=== PATIENT | female | born 1930 | race Caucasian/White ===

== ENCOUNTER 2016-09-04 10:19 | Inpatient (IN) | payer MEDICARE ==
[~2016-09-04] VITALS: Ht 160 cm; Wt 43.5 kg
[2016-09-04] VITALS (8 sets, daily range): BP systolic 117–186; BP diastolic 59–92
[~2016-09-04 10:19] MED LIST: ACET500T33 PO; ASPI-482 PO; ASPI81TA9 PO; BENA1TAB6 PO; BIOT1TAB PO; BUPR150T6 PO; DILT120C97 PO; DILT120T3 PO; DILT240C32 PO; GUAI600T38 PO; HYDR12.53 PO; LEVO250T25 PO; LISI-334 PO; LISI10TA2 PO; METO25TA4 PO; METO50TA2 PO; OXYC1TAB9 PO; PANT40TA5 PO; PRED-220 PO; PROP50TA17 PO; TRAM50TA PO; TRAMADOL PO; ZOLP10TA4 PO
[2016-09-04] MEDS ORDERED: IV NORMAL SALINE 1000ML BAG 1,000 ML IV SCH (10:25)
[2016-09-04] MEDS ORDERED: ONDANSETRON PF 4 MG/2 ML VIAL. IV ONE (10:30)
[2016-09-04] MEDS ORDERED: fentaNYL PF VIAL 100 MCG/2 ML VIAL IV PRN ×2 (10:30→19:30)
--- NOTE | 2016-09-04 10:58 | RAD ---
Portable pelvis with left hip, 2 views, 09/04/2016: History: Fall, pain The bony structures are demineralized. There is an acute intertrochanteric fracture of the left hip. There is a mild varus deformity at the fracture site. There is mild medial displacement of a lesser trochanteric fracture fragment. Moderate degenerative change is present at the left hip joint. There are extensive scattered vascular calcifications. There are periarticular calcifications along the lateral aspect of the right hip joint. There are small radiopaque foreign bodies projected over the right mid pelvis and the left lower quadrant of the abdomen. These may represent artifacts on the surface of the patient. Clinical correlation is suggested. IMPRESSION: 1. Demineralization. 2. Acute intertrochanteric fracture of the left hip.
--- NOTE | 2016-09-04 11:00 | RAD ---
Portable chest, 09/04/2016: History: Fall, back and hip pain Comparison is made to a study from 06/03/2015. The heart size and pulmonary vascularity are within normal limits. There is calcific plaquing of the aorta. There are mild parenchymal scars. No acute infiltrate is seen. There is no evidence of pleural fluid or pneumothorax. There is a mild thoracolumbar scoliosis with associated multilevel degenerative change. IMPRESSION: 1. Aortic atherosclerosis. 2. No acute cardiopulmonary abnormality is detected.
--- NOTE | 2016-09-04 11:01 | RAD ---
Portable left knee, 2 views, 09/04/2016: History: Fall, pain There is patchy bony demineralization. No fracture or dislocation is identified. There is moderate chondrocalcinosis. Moderate scattered vascular calcifications are present. IMPRESSION: 1. Demineralization. 2. Moderate chondrocalcinosis. 3. No acute bony abnormality is detected.
--- NOTE | 2016-09-04 11:21 | PHYS DOC ---
Past Medical History Past Medical History: A-Fib, Hypertension, Other Additional Past Medical Histor: scoliosos Past Surgical History: Hysterectomy, Other Additional Past Surgical Histo: foot Alcohol Use: None Drug Use: None Adult General Chief Complaint Chief Complaint: HIP PAIN HPI HPI Patient is a 85 year old female who presents with complaint of left hip pain. Patient states that she was walking on her driveway to get her morning newspaper when she suddenly lost balance and fell onto her left side. Patient states that she experienced severe pain and was unable to ambulate after her fall. EMS was called and brought patient to the emergency department for further evaluation. The patient was treated with 50 g of fentanyl by EMS prior to arrival. Patient states she is having severe pain in the left hip and is unable to move the left lower extremity secondary to pain. Patient states that the pain radiates down towards her left knee. Patient denies any other injuries but states that she may have hit her head as result of the fall. Review of Systems Review of Systems Constitutional: Denies fever or chills [] Eyes: Denies change in visual acuity, redness, or eye pain [] HENT: Denies nasal congestion or sore throat [] Respiratory: Denies cough or shortness of breath [] Cardiovascular: Denies chest pain or edema [] GI: Denies abdominal pain, nausea, vomiting, bloody stools or diarrhea [] : Denies dysuria or hematuria [] Musculoskeletal: Left hip and knee pain [] Integument: Denies rash or skin lesions [] Neurologic: Denies headache, focal weakness or sensory changes [] Current Medications Current Medications Current Medications Medications (Trade) Dose Ordered Sig/Andre Start Time Stop Time Status Last Admin Dose Admin Fentanyl Citrate (Fentanyl 2ml Vial) 50 mcg PRN Q15MIN PRN 09/04/16 10:30 09/05/16 10:29 09/04/16 10:43 50 MCG Ondansetron HCl (Zofran) 4 mg 1X ONCE 09/04/16 10:30 09/04/16 10:32 DC 09/04/16 10:43 4 MG Sodium Chloride 1,000 ml @ 100 mls/hr Q10H 09/04/16 10:25 09/04/16 20:24 09/04/16 10:44 100 MLS/HR Allergies Allergies Allergies Coded Allergies Type Severity Reaction Last Updated Verified No Known Drug Allergies 10/29/14 No Physical Exam Physical Exam Constitutional: Alert, afebrile, appears in moderate to severe discomfort. [] HENT: Normocephalic, atraumatic, bilateral external ears normal, oropharynx moist, no oral exudates, nose normal. [] Eyes: PERRLA, EOMI, conjunctiva normal, no discharge. [] Neck: Normal range of motion, no tenderness, supple, no stridor. [] Cardiovascular:Heart rate regular rhythm, no murmur [] Lungs & Thorax: Bilateral breath sounds clear to auscultation [] Abdomen: Bowel sounds normal, soft, no tenderness, no masses, no pulsatile masses. [] Skin: Warm, dry, no erythema, no rash. [] Back: No tenderness, no CVA tenderness. [] Extremities: Left lower extremity shortened and held in mildly flexed position, no cyanosis, no clubbing, range of motion not tested and left hip secondary to pain, trace pedal edema bilaterally, neurovascularly intact distal to injury, pain with range of motion and right shoulder with no palpable crepitus and no obvious deformity. [] Neurologic: Alert and oriented X 3, normal motor function, normal sensory function, no focal deficits noted. [] Current Patient Data Vital Signs Vital Signs Date Time Temp Pulse Resp B/P (MAP) Pulse Ox O2 Delivery O2 Flow Rate FiO2 09/04/16 10:43 20 09/04/16 10:26 98.2 51 210/89 (129) 99 Room Air 98.2 EKG EKG Interpreted by me: Heart rate 53, sinus bradycardia, normal intervals, normal axis, no acute ST/T-wave abnormalities present [] Radiology/Procedures Radiology/Procedures [facility] [address] [place] [address] IMAGING REPORT Signed PATIENT: CHANTE ZAIDI ACCOUNT: [id number] : 1930 LOCATION: [address] [place] [address] AGE: 85 SEX: F EXAM STATUS: ADM IN ORD. PHYSICIAN: OMAR JOHN MD REASON: fall, right shoulder pain PROCEDURE: SHOULDER 2+V RIGHT Right shoulder, 3 views, 09/04/2016: History: Fall, shoulder pain The bony structures are demineralized. No fracture or dislocation is identified. There is considerable hypertrophic degenerative change at the acromioclavicular joint. There is mild spurring at the glenohumeral articulation. There are soft tissue calcifications along the superior aspect of the humeral head and the lateral aspect of the greater tuberosity, probably related to rotator cuff tendons. IMPRESSION: 1. Demineralization. 2. Moderate degenerative change. 3. No acute bony abnormality is detected. DICTATED and SIGNED BY: PAVAN CAMARENA MD DATE: 09/04/16 0948 CC: OMAR JOHN MD; VIVIANA OCHOA MD ~ [place] [id number] [place] [address] IMAGING REPORT Signed PATIENT: CHANTE ZAIDI ACCOUNT: [id number] : 1930 LOCATION: [address] [place] [address] AGE: 85 SEX: F EXAM STATUS: ADM IN ORD. PHYSICIAN: OMAR JOHN MD REASON: fall with possible head injury PROCEDURE: CT HEAD WO CONTRAST CT of the head without contrast, 09/04/2016: History: Fall, head injury Comparison is made to a study from 05/21/2015. There is mild cerebral atrophy. There are moderate patchy lucencies in the deep white matter bilaterally compatible with chronic ischemic change. Similar findings were present on the previous study. The ventricles are mildly enlarged on a compensatory basis. There is no shift of the midline structures. There is no evidence of acute intracranial hemorrhage or mass effect. IMPRESSION: 1. Chronic findings as described above. 2. No acute intracranial abnormality is detected. PQRS Compliance Statement: One or more of the following individualized dose reduction techniques were utilized for this examination: 1. Automated exposure control 2. Adjustment of the mA and/or kV according to patient size 3. Use of iterative reconstruction technique DICTATED and SIGNED BY: PAVAN CAMARENA MD DATE: 09/04/16 1150 CC: OMAR JOHN MD; VIVIANA OCHOA MD ~ [facility] [address] [place] [address] IMAGING REPORT Signed PATIENT: CHANTE ZAIDI ACCOUNT: [id number] : 1930 LOCATION: ER AGE: 85 SEX: F EXAM STATUS: PRE ER ORD. PHYSICIAN: OMAR JOHN MD REASON: fall, left hip pain, shortened left lower extremity, left hip pain PROCEDURE: HIP LEFT 2V WITH PELVIS Portable pelvis with left hip, 2 views, 09/04/2016: History: Fall, pain The bony structures are demineralized. There is an acute intertrochanteric fracture of the left hip. There is a mild varus deformity at the fracture site. There is mild medial displacement of a lesser trochanteric fracture fragment. Moderate degenerative change is present at the left hip joint. There are extensive scattered vascular calcifications. There are periarticular calcifications along the lateral aspect of the right hip joint. There are small radiopaque foreign bodies projected over the right mid pelvis and the left lower quadrant of the abdomen. These may represent artifacts on the surface of the patient. Clinical correlation is suggested. IMPRESSION: 1. Demineralization. 2. Acute intertrochanteric fracture of the left hip. DICTATED and SIGNED BY: PAVAN CAMARENA MD DATE: 09/04/16 1053 CC: OMAR JOHN MD; VIVIANA OCHOA MD ~ [place] [address] IMAGING REPORT Signed PATIENT: CHANTE ZAIDI ACCOUNT: [id number] : 1930 LOCATION: ER AGE: 85 SEX: F EXAM STATUS: PRE ER ORD. PHYSICIAN: OMAR JOHN MD REASON: fall from standing onto hard surface, upper back pain PROCEDURE: PORTABLE CHEST 1V Portable chest, 09/04/2016: History: Fall, back and hip pain Comparison is made to a study from 06/03/2015. The heart size and pulmonary vascularity are within normal limits. There is calcific plaquing of the aorta. There are mild parenchymal scars. No acute infiltrate is seen. There is no evidence of pleural fluid or pneumothorax. There is a mild thoracolumbar scoliosis with associated multilevel degenerative change. IMPRESSION: 1. Aortic atherosclerosis. 2. No acute cardiopulmonary abnormality is detected. DICTATED and SIGNED BY: PAVAN CAMARENA MD DATE: 09/04/16 105 CC: OMAR JOHN MD; VIVIANA OCHOA MD ~ [facility] [address] [place] [address] IMAGING REPORT Signed PATIENT: CHANTE ZAIDI ACCOUNT: [id number] : 1930 LOCATION: ER AGE: 85 SEX: F EXAM STATUS: PRE ER ORD. PHYSICIAN: OMAR JOHN MD REASON: fall, left hip pain, shortened left lower extremity, left knee pain PROCEDURE: KNEE LEFT 2V Portable left knee, 2 views, 09/04/2016: History: Fall, pain There is patchy bony demineralization. No fracture or dislocation is identified. There is moderate chondrocalcinosis. Moderate scattered vascular calcifications are present. IMPRESSION: 1. Demineralization. 2. Moderate chondrocalcinosis. 3. No acute bony abnormality is detected. DICTATED and SIGNED BY: PAVAN CAMARENA MD DATE: 09/04/161057 CC: OMAR JOHN MD; VIVIANA OCHOA MD ~ [] Course & Med Decision Making Course & Med Decision Making Pertinent Labs and Imaging studies reviewed. (See chart for details) Patient was found to have a left intertrochanteric fracture on x-ray. The patient was started on IV fentanyl and IV fluids. The patient will need admission to the hospital with orthopedic consult to evaluate for possible surgical fixation of patient's fracture. I spoke with Dr. Ochoa who accepted care patient in hospital. A consult was placed to Dr. Mayen of orthopedic surgery to follow patient in hospital. Dragon Disclaimer Dragon Disclaimer This electronic medical record was generated, in whole or in part, using a voice recognition dictation system. Departure Departure Impression: Primary Impression: Intertrochanteric fracture of left hip Additional Impression: Renal insufficiency Disposition: 09 ADMITTED INPATIENT Admitting Physician: Viviana Ochoa Condition: STABLE Referrals: VIVIANA OCHOA MD (PCP) Problem Qualifiers Primary Impression: Intertrochanteric fracture of left hip Encounter type: initial encounter Fracture type: closed Qualified Codes: S72.142A - Displaced intertrochanteric fracture of left femur, initial encounter for closed fracture OMAR JOHN MD September 04, 2016 11:21
[2016-09-04 11:29] LABS: BASO # 0.1 x10^3/uL (0.0-0.2); BASO % 1 % (0-3); EOS % 2 % (0-3); HEMATOCRIT 31.6 % (36.0-47.0); HEMOGLOBIN 10.5 g/dL (12.0-15.5); LYMPH # 1.4 x10^3/uL (1.0-4.8); LYMPH % 17 % (24-48); MEAN CORPUSCULAR HEMOGLOBIN 30 pg (25-35); MEAN CORPUSCULAR HGB CONC 33 g/dL (31-37); MEAN CORPUSCULAR VOLUME 91 fL (79-100); MONO % 9 % (0-9); NEUT % 73 % (31-73); PLATELET COUNT 248 x10^3/uL (140-400); RED BLOOD COUNT 3.48 x10^6/uL (3.50-5.40); RED CELL DISTRIBUTION WIDTH 14.1 % (11.5-14.5); WHITE BLOOD COUNT 8.7 x10^3/uL (4.0-11.0)
[2016-09-04] MEDS ORDERED: ACETAMINOPHEN 325 MG TABLET. PO PRN (11:30)
[2016-09-04] MEDS ORDERED: ONDANSETRON PF 4 MG/2 ML VIAL. IV PRN ×3 (11:30→19:30)
[2016-09-04 11:40] LABS: CALCIUM 9.5 mg/dL (8.5-10.1); CREATININE 1.5 mg/dL (0.6-1.0); GFR 32.9; POTASSIUM 4.1 mmol/L (3.5-5.1)
[2016-09-04 11:46] LABS: ALBUMIN 3.3 g/dL (3.4-5.0); ALBUMIN/GLOBULIN RATIO 1.2 (1.0-1.7); TOTAL BILIRUBIN 0.5 mg/dL (0.2-1.0)
--- NOTE | 2016-09-04 11:52 | RAD ---
Right shoulder, 3 views, 09/04/2016: History: Fall, shoulder pain The bony structures are demineralized. No fracture or dislocation is identified. There is considerable hypertrophic degenerative change at the acromioclavicular joint. There is mild spurring at the glenohumeral articulation. There are soft tissue calcifications along the superior aspect of the humeral head and the lateral aspect of the greater tuberosity, probably related to rotator cuff tendons. IMPRESSION: 1. Demineralization. 2. Moderate degenerative change. 3. No acute bony abnormality is detected.
--- NOTE | 2016-09-04 11:55 | RAD ---
CT of the head without contrast, 09/04/2016: History: Fall, head injury Comparison is made to a study from 05/21/2015. There is mild cerebral atrophy. There are moderate patchy lucencies in the deep white matter bilaterally compatible with chronic ischemic change. Similar findings were present on the previous study. The ventricles are mildly enlarged on a compensatory basis. There is no shift of the midline structures. There is no evidence of acute intracranial hemorrhage or mass effect. IMPRESSION: 1. Chronic findings as described above. 2. No acute intracranial abnormality is detected. PQRS Compliance Statement: One or more of the following individualized dose reduction techniques were utilized for this examination: 1. Automated exposure control 2. Adjustment of the mA and/or kV according to patient size 3. Use of iterative reconstruction technique
[2016-09-04 12:29] LABS: BILIRUBIN,URINE NEGATIVE (NEG); GLUCOSE,URINE NEGATIVE (NEG); NITRITE,URINE NEGATIVE (NEG); PROTEIN,URINE NEGATIVE (NEG-TRACE); UROBILINOGEN,URINE 0.2 mg/dL (0.2 mg/dL)
[2016-09-04 12:44] LABS: BACTERIA,URINE 0 /HPF (0-FEW); RBC,URINE 0 /HPF (0-2); SQUAMOUS EPITHELIAL CELL,UR FEW /LPF; WBC,URINE OCC /HPF (0-4)
--- NOTE | 2016-09-04 13:15 | ACF ---
Admission Forms Criteria MUSCULOSKELETAL DISEASE GRG Clinical Indications for Admission to Inpatient Care (Place 'X' for any and all applicable criteria): Hospital admission is needed for appropriate care of the patient because of 1 or more of the following: [X]I. Fracture, dislocation, or other musculoskeletal injury requiring inpatient care(medical) as indicated by 1 or more of the following(4)(5)(6)(7) [ ]a) Vertebral fracture requiring observation for instability or neurologic compromise (8) [ ]b) Compartment syndrome (proven or cannot be ruled out during observation level of care) (9) [ ]c) Limb-threatening injury [ ]d) Major injury requiring inpatient stabilization such as traction initiation or external fixation before internal fixation or closure of complex or open fracture [X]e) Major injury requiring inpatient treatment after emergency or observation level care (as appropriate) [ ]f) Severe pain requiring acute inpatient management [ ]g) Injury with suspicion of abuse or neglect (eg., child, dependent elderly) [ ]II. Newly diagnosed or suspected bone, joint, or orthopedic device infection (e.g., osteomyelitis, septic arthritis) needing 1 or more of the following(1)(2)(3) [ ]a) IV antibiotics that cannot be initiated in other than inpatient setting (e.g., patient too unstable or home infusion not available) [ ]b) Device removal or replacement [ ]c) Bone or soft tissue debridement [ ]d) Joint drainage (drain placement or repetitive aspirations) [ ]III. Severe rheumatologic disease (e.g., systemic lupus erythematosus, rheumatoid arthritis) with complications or comorbidities (Also use Optimal Recovery Care Criteria or General Recovery Criteria as appropriate on the basis of predominant condition), including 1 or more of the following( 10)(11)(12)(13) [ ]a) Severe infection (e.g., [employer] infection, sepsis) (14) [ ]b) Respiratory complications, including 1 or more of the following : [ ]i) Pleural effusion with respiratory compromise [ ]ii) Pulmonary hypertension with congestive failure [ ]iii) Respiratory failure [ ]iv) Pulmonary hemorrhage (15) [ ]c) Hematologic disease, including 1 or more of the following: [ ]i) Coagulopathy with bleeding [ ]ii) Thrombosis with hypercoagulable state [ ]iii) Thrombotic thrombocytopenic purpura [ ]d) Cerebritis with seizures, psychosis, or other severe abnormalities [ ]e) Vertebral destruction with monitoring needed for cervical myelopathy& possible respiratory compromise [ ]f) Exacerbation that requires inpatient treatment (e.g., intravenous immunosuppression) (16) [ ]g) Acute renal failure [ ]h) Cerebritis with seizures, psychosis, Altered mental status, or other neurologic abnormalities [ ]i) Pericardial effusion with tamponade [ ]j) Vertebral destruction, with monitoring needed for cervical myelopathy and possible respiratory compromise [ ]IV. Severe vasculitis with complications or comorbidities (Also use Optimal Recovery Care Criteria General Recovery Criteria as appropriate on the basis of predominant condition), including 1 or more of the following(11)(12)(17)(18)(19)(20) [ ]a) Exacerbation that requires inpatient treatment (e.g., intravenous immunosuppression) (19)(21) [ ]b) Pulmonary hemorrhage (15) [ ]c) [employer] vasculitis with seizures, psychosis, Altered mental status that is severe or persistent, or other severe abnormalities (22) [ ]d) Cerebral infarction [ ]e) Gastrointestinal ischemia [ ]f) Gangrene or threatened amputation [ ]g) Renal failure (16) [ ]h) Other significant complications of vasculitis ( eg., tissue or organ ischemia, organ dysfunction ) [ ]V. Severe myopathy as indicated by 1 or more of the following (28)(29) [ ]a) New onset of airway compromise or inability to swallow [ ]b) Respiratory deterioration with observation needed for impending respiratory failure [ ]c) Exacerbation that requires inpatient treatment (e.g., intravenous immunosuppression) [ ]. Severe crystal gout (arthropathy) indicated by 1 or more of the following (23)(24) [ ]a) Severe pain requiring acute inpatient management [ ]b) Exacerbation that requires inpatient treatment (e.g., intravenous treatment) [ ]VII.Rhabdomyolysis and 1 or more of the following (25)(26)(27) [ ]a) Acute renal failure [ ]b) Need for intravenous hydration after emergency or observation level care (as appropriate) [ ]c) Inability to maintain oral hydration [ ]d) Change in mental status [ ]e) Electrolyte abnormality that remains after emergency or observation level care (as appropriate) [ ]VIII Post amputation complication, as indicated by ANY ONE of the following [ ]a) Infection [ ]b) Dehiscence [ ]c) Myodesis failure [ ]IX. Severe pain requiring acute inpatient management due to musculoskeletal condition [ ]X. Musculoskeletal Disease and ALL of the following: [ ]a) Symptom or finding for which emergency and observation care have failed or are not considered appropriate (Use General Criteria: Observation Care as appropriate) [ ]b) Presence of ANY ONE of the following [ ]i) A General Admission Criteria [ ]ii) A Pediatric General Admission Criteria The original [facility] [employer] content created by [facility] [employer] has been revised. The portions of the content which have been revised are identified through the use of italic text or in bold, and [facility] has neither reviewed nor approved the modified material. All other unmodified content is copyright [facility]. Please see references footnoted in the original [facility] edition 2016 Admission Criteria Met?: Yes KETTY CHEEK September 04, 2016 13:15
[2016-09-04] MEDS: IV NORMAL SALINE 1000ML BAG 1,000 ML IV SCH ×2 (13:38→19:40)
[2016-09-04] MEDS ORDERED: BUPIVACAINE-EPI 0.25%-1:200000 50 ML VIAL. ONE (14:14)
--- NOTE | 2016-09-04 15:15 | PDOC2 ---
CONSULT Date of Consult Date of Consult DATE: 09/04/16 Reason for Consult Reason for Consult: left hip fracture Referring Physician Referring Physician: Dr. Fitzgerald Identification/Chief Complaint Chief Complaint left hip pain Source Source: Chart review, Patient History of Present Illness Reason for Visit: Ms. Cowart is an 85 year old female patient admitted with left hip fracture. She states she was walking down her driveway at about noon today to get the paper and suddenly lost balance, falling onto her left hip. She says she lives at home alone, renting a house. She normally ambulates well with a cane or a walker. She does still drive. She says she drank a little water this morning, but hasn't eaten anything today. Past Medical History Cardiovascular: AFIB, HTN, Syncope, Valve insufficiency, Pulmonary hypertension , Other Pulmonary: COPD CENTRAL NERVOUS SYSTEM: Dementia, Other GI: Diverticulosis, GERD, GI bleed Heme/Onc: Anemia NOS Psych: Depression Musculoskeletal: Osteoarthritis, Other Rheumatologic: Rheumatoid arthritis Renal/: Chronic renal insuff Past Surgical History Past Surgical History: Appendectomy, Cataract Removal, Hysterectomy, Other Family History Family History: Heart Disease Social History Social History Uses a walker/cane. Still drives. No ALCOHOL: none Drugs: None Lives: Alone (rents a house) Domestic Violence: Neg Current Problem List Problem List Problems Medical Problems: (1) Intertrochanteric fracture of left hip Status: Acute (2) Renal insufficiency Status: Acute Current Medications Current Medications Current Medications Sodium Chloride 1,000 ml @ 100 mls/hr Q10H IV Last administered on 09/04/16 10:44; Start 09/04/16 at 10:25; Stop 09/04/16 at 20:24 Fentanyl Citrate (Fentanyl 2ml Vial) 50 mcg PRN Q15MIN PRN IV PAIN GREATER THAN 3/10 Last administered on 09/04/16 10:43; Start 09/04/16 at 10:30; Stop at 10:29 Ondansetron HCl (Zofran) 4 mg 1X ONCE IV Last administered on 09/04/16 10:43 ; Start 09/04/16 at 10:30; Stop 09/04/16 at 10:32; Status DC Ondansetron HCl (Zofran) 4 mg PRN Q8HRS PRN IV NAUSEA/VOMITING; Start 09/04/16 at 11:30; Stop 09/05/16 at 11:29 Fentanyl Citrate (Fentanyl 2ml Vial) 50 mcg PRN Q2HR PRN IV PAIN; Start at 11:30; Stop 09/05/16 at 11:29 Sodium Chloride 1,000 ml @ 100 mls/hr Q10H IV Last administered on 09/04/16t 13:38; Start 09/04/16 at 12:00; Stop 09/05/16 at 11:59 Acetaminophen (Tylenol) 650 mg PRN Q4HRS PRN PO FEVER; Start 09/04/16 at 11:30 ; Stop 09/05/16 at 11:29 Bupivacaine HCl/ Epinephrine Bitart (Marcaine-Epi 0.25%-1:[id number]) 50 ml STK-MED ONCE .ROUTE ; Start 09/04/16 at 14:14; Stop 09/04/16 at 14:15; Status DC Active Scripts Active Prednisone 10 Mg Tablet 10 Mg PO DIRECTED Levaquin (Levofloxacin) 250 Mg Tablet 250 Mg PO DAILY06 Lisinopril 10 Mg Tablet 10 Mg PO DAILY Mucinex (Guaifenesin) 600 Mg Tablet.er 1,200 Mg PO BID Diltiazem 24HR Cd (Diltiazem Hcl) 240 Mg Cap.er.24h 240 Mg PO DAILY Aspirin Ec (Aspirin) 81 Mg Tablet. 81 Mg PO DAILYWBKFT Metoprolol Tartrate 50 Mg Tablet 1 Tab PO BID Reported Lisinopril 20 Mg Tablet 1 Tab PO DAILY Tylenol Extra Strength (Acetaminophen) 500 Mg Tablet 500 Mg PO DAILY Hydrochlorothiazide Capsule (Hydrochlorothiazide) 12.5 Mg Capsule 1 Cap PO DAILY FOR TREATMENT OF HYPERTENSION LAST DOSE GIVEN: DATE:06/03/15 TIME: 0900 AM NEXT DOSE DUE: DATE: 06/04/15 TIME: 0900 AM Pantoprazole Sodium 40 Mg Tablet. 40 Mg PO DAILYAC PRN Bupropion Xl (Bupropion Hcl) 150 Mg Tab.er.24h 1 Tab PO DAILYWBKFT fOR TREATMENT OF DEPRESSION LAST DOSE GIVEN: DATE: 06/03/15 TIME: 0900 AM NEXT DOSE DUE: DATE: 06/04/15 TIME: 0900 AM Allergies Allergies: Coded Allergies: No Known Drug Allergies (Unverified , 10/29/14) Physical Exam General: Alert, Oriented X3, Cooperative, No acute distress HEENT: Atraumatic, EOMI, Other (Deaf in her left ear. Hears well from her right ear.) Lungs: Normal air movement Heart: Regular rate Abdomen: Soft Extremities: No clubbing, No cyanosis, Normal pulses, Other (BLE trace pedal edema) Skin: No rashes, No breakdown, No significant lesion, Other (Abrasion and ecchymosis to left elbow) Neuro: Normal speech, Sensation intact Psych/Mental Status: Mental status NL, Mood NL MUSCULOSKELETAL: Other (No abrasion or ecchymosis noted over left hip. Left lower extremity shortened and rotated. Attempted motion of left hip is painful. Calf soft and nontender with negative Ciro's. Good df/pf. Peripheral pulses intact. SILT.) Vitals VITALS Vital Signs Date Time Temp Pulse Resp B/P (MAP) Pulse Ox O2 Delivery O2 Flow Rate FiO2 09/04/16 11:30 52 168/104 (125) 96 09/04/16 10:43 20 09/04/16 10:26 98.2 Room Air 98.2 Labs Labs Laboratory Tests Test 09/04/16 11:20 09/04/16 12:20 White Blood Count 8.7 x10^3/uL (4.0-11.0) Red Blood Count 3.48 x10^6/uL (3.50-5.40) Hemoglobin 10.5 g/dL (12.0-15.5) Hematocrit 31.6 % (36.0-47.0) Mean Corpuscular Volume 91 fL (79-100) Mean Corpuscular Hemoglobin 30 pg (25-35) Mean Corpuscular Hemoglobin Concent 33 g/dL (31-37) Red Cell Distribution Width 14.1 % (11.5-14.5) Platelet Count 248 x10^3/uL (140-400) Neutrophils (%) (Auto) 73 % (31-73) Lymphocytes (%) (Auto) 17 % (24-48) Monocytes (%) (Auto) 9 % (0-9) Eosinophils (%) (Auto) 2 % (0-3) Basophils (%) (Auto) 1 % (0-3) Neutrophils # (Auto) 6.3 x10^3uL (1.8-7.7) Lymphocytes # (Auto) 1.4 x10^3/uL (1.0-4.8) Monocytes # (Auto) 0.7 x10^3/uL (0.0-1.1) Eosinophils # (Auto) 0.1 x10^3/uL (0.0-0.7) Basophils # (Auto) 0.1 x10^3/uL (0.0-0.2) Sodium Level 142 mmol/L (136-145) Potassium Level 4.1 mmol/L (3.5-5.1) Chloride Level 105 mmol/L (98-107) Carbon Dioxide Level 25 mmol/L (21-32) Anion Gap 12 (6-14) Blood Urea Nitrogen 29 mg/dL (7-20) Creatinine 1.5 mg/dL (0.6-1.0) Estimated GFR (Cockcroft-Gault) 32.9 BUN/Creatinine Ratio 19 (6-20) Glucose Level 98 mg/dL (70-99) Calcium Level 9.5 mg/dL (8.5-10.1) Total Bilirubin 0.5 mg/dL (0.2-1.0) Aspartate Amino Transf (AST/SGOT) 14 U/L (15-37) Alanine Aminotransferase (ALT/SGPT) 14 U/L (14-59) Alkaline Phosphatase 73 U/L (46-116) Total Protein 6.0 g/dL (6.4-8.2) Albumin 3.3 g/dL (3.4-5.0) Albumin/Globulin Ratio 1.2 (1.0-1.7) Urine Collection Type Unknown Urine Color Yellow Urine Clarity Clear Urine pH 7.0 Urine Specific [place] 1.010 Urine Protein Negative mg/dL (NEG-TRACE) Urine Glucose (UA) Negative mg/dL (NEG) Urine Ketones (Stick) Negative mg/dL (NEG) Urine Blood Negative (NEG) Urine Nitrite Negative (NEG) Urine Bilirubin Negative (NEG) Urine Urobilinogen Dipstick 0.2 mg/dL (0.2 mg/dL) Urine Leukocyte Esterase Negative (NEG) Urine RBC 0 /HPF (0-2) Urine WBC Occ /HPF (0-4) Urine Squamous Epithelial Cells Few /LPF Urine Transitional Epithelial Cells Occ /LPF Urine Amorphous Sediment Present /HPF Urine Bacteria 0 /HPF (0-FEW) Laboratory Tests Test 09/04/16 11:20 09/04/16 12:20 White Blood Count 8.7 x10^3/uL (4.0-11.0) Red Blood Count 3.48 x10^6/uL (3.50-5.40) Hemoglobin 10.5 g/dL (12.0-15.5) Hematocrit 31.6 % (36.0-47.0) Mean Corpuscular Volume 91 fL (79-100) Mean Corpuscular Hemoglobin 30 pg (25-35) Mean Corpuscular Hemoglobin Concent 33 g/dL (31-37) Red Cell Distribution Width 14.1 % (11.5-14.5) Platelet Count 248 x10^3/uL (140-400) Neutrophils (%) (Auto) 73 % (31-73) Lymphocytes (%) (Auto) 17 % (24-48) Monocytes (%) (Auto) 9 % (0-9) Eosinophils (%) (Auto) 2 % (0-3) Basophils (%) (Auto) 1 % (0-3) Neutrophils # (Auto) 6.3 x10^3uL (1.8-7.7) Lymphocytes # (Auto) 1.4 x10^3/uL (1.0-4.8) Monocytes # (Auto) 0.7 x10^3/uL (0.0-1.1) Eosinophils # (Auto) 0.1 x10^3/uL (0.0-0.7) Basophils # (Auto) 0.1 x10^3/uL (0.0-0.2) Sodium Level 142 mmol/L (136-145) Potassium Level 4.1 mmol/L (3.5-5.1) Chloride Level 105 mmol/L (98-107) Carbon Dioxide Level 25 mmol/L (21-32) Anion Gap 12 (6-14) Blood Urea Nitrogen 29 mg/dL (7-20) Creatinine 1.5 mg/dL (0.6-1.0) Estimated GFR (Cockcroft-Gault) 32.9 BUN/Creatinine Ratio 19 (6-20) Glucose Level 98 mg/dL (70-99) Calcium Level 9.5 mg/dL (8.5-10.1) Total Bilirubin 0.5 mg/dL (0.2-1.0) Aspartate Amino Transf (AST/SGOT) 14 U/L (15-37) Alanine Aminotransferase (ALT/SGPT) 14 U/L (14-59) Alkaline Phosphatase 73 U/L (46-116) Total Protein 6.0 g/dL (6.4-8.2) Albumin 3.3 g/dL (3.4-5.0) Albumin/Globulin Ratio 1.2 (1.0-1.7) Urine Collection Type Unknown Urine Color Yellow Urine Clarity Clear Urine pH 7.0 Urine Specific [place] 1.010 Urine Protein Negative mg/dL (NEG-TRACE) Urine Glucose (UA) Negative mg/dL (NEG) Urine Ketones (Stick) Negative mg/dL (NEG) Urine Blood Negative (NEG) Urine Nitrite Negative (NEG) Urine Bilirubin Negative (NEG) Urine Urobilinogen Dipstick 0.2 mg/dL (0.2 mg/dL) Urine Leukocyte Esterase Negative (NEG) Urine RBC 0 /HPF (0-2) Urine WBC Occ /HPF (0-4) Urine Squamous Epithelial Cells Few /LPF Urine Transitional Epithelial Cells Occ /LPF Urine Amorphous Sediment Present /HPF Urine Bacteria 0 /HPF (0-FEW) Images Images Left hip x-rays reveal intertrochanteric femur fracture. CT head show no acute findings. Shoulder x-rays show degenerative changes, no acute abnormalities. Knee x-rays show chondrocalcinosis and osteoarthritic changes, no acute findings. Assessment/Plan Assessment/Plan Left intertrochanteric femur fracture. Findings and treatment options were discussed with the patient. Dr. Mayen recommended left femur intramedullary nail under general anesthesia. The risks of surgery were discussed, including bleeding, blood clots, infection, continued pain, and any other potential surgical or anesthetic complications. All of her questions were answered and she agrees to proceed. We will plan to take her to the OR this afternoon. KARL RAMOS September 04, 2016 15:15
[2016-09-04] MEDS: LISINOPRIL 10 MG TABLET PO SCH (16:00)
[2016-09-04] MEDS: predniSONE 10 MG TABLET PO SCH (16:00)
[2016-09-04] MEDS: buPROPion XL 150 MG TAB.ER.24H. PO SCH (16:00)
[2016-09-04] MEDS: fentaNYL PF VIAL 100 MCG/2 ML VIAL IV PRN ×7 (16:00→20:33)
[2016-09-04] MEDS ORDERED: ASPIRIN ENTERIC COATED 81 MG TABLET.DR. PO SCH (16:00)
[2016-09-04] MEDS ORDERED: PANTOPRAZOLE 40 MG TABLET.DR. PO PRN (16:00)
[2016-09-04] MEDS ORDERED: IV RINGERS,LACTATED 1000ML 1,000 ML IV SCH (16:25)
[2016-09-04] MEDS ORDERED: PROCHLORPERAZINE 10 MG/2 ML VIAL. IV PRN (16:30)
[2016-09-04] MEDS ORDERED: HYDROmorphone 2 MG/ML VIAL IV PRN (16:30)
[2016-09-04] MEDS ORDERED: LIDOCAINE 1% 1 ML SYRINGE. ID PRN (16:30)
[2016-09-04] MEDS ORDERED: MORPHINE SULFATE 2 MG/ML DISP.SYRIN. IV PRN (16:30)
[2016-09-04 16:59] LABS: PROTHROMBIN TIME PATIENT 12.3 SEC (11.7-14.0)
[2016-09-04] MEDS ORDERED: LIDOCAINE 2% PF Vial for OR 5 ML VIAL. ONE (17:02)
[2016-09-04] MEDS ORDERED: ONDANSETRON PF 4 MG/2 ML VIAL. ONE (17:02)
[2016-09-04] MEDS ORDERED: DEXAMETHASONE SOD PHOS 20 MG/5 ML VIAL. ONE (17:02)
[2016-09-04] MEDS ORDERED: DESFLURANE 61 TO 120 MINUTES IH ONE (17:02)
[2016-09-04] MEDS ORDERED: fentaNYL PF VIAL 100 MCG/2 ML VIAL ONE (17:02)
[2016-09-04] MEDS ORDERED: PROPOFOL 20 ML IV ONE (17:02)
[2016-09-04] MEDS ORDERED: [UNRECOGNIZED DRUG - REMARK] INT ART ONE ×4 (17:30)
[2016-09-04] MEDS ORDERED: HYDROCORTISONE SOD SUCC/PF 100 MG/2 ML VIAL. ONE (17:34)
[2016-09-04] MEDS ORDERED: ePHEDrine PF IN SALINE 50 MG/5 ML DISP.SYRIN IV ONE (18:15)
--- NOTE | 2016-09-04 19:06 | PDOC4 ---
Operative Note Operative Note Date of Procedure: September 04, 2016 Pre-Op Diagnosis: closed left intertrochanteric hip fracture Post-Op Diagnosis: closed left intertrochanteric hip fracture Procedure/Anesthesia: Treatment of intertrochanteric left femur fracture with intramedullary implant (CPT 80417) Surgeon: Bert Mayen MD Ballast Regulator Operator: Dianne Nichols PA-C Anesthesia Type: General EBL: 100 mL Specimens Obtained: none Complications: None Implant Company: [employer] INDICATION FOR PROCEDURE: The patient is an 85 year-old, who fell, sustaining a left hip fracture. The patient and I and the patient's family discussed the risks, benefits and alternatives of treatment. The alternative for treatment is bedrest until the fracture feels well, which is generally not well tolerated due to the risks of bedsores, blood clots, pneumonia and deconditioning. I recommended intramedullary nailing, and I talked to them about the potential risks of this including risks of bleeding, infection, blood clots, malunion, nonunion or other potential surgical or anesthetic complications. All of their questions were answered about surgery and they desired to proceed. A written consent was obtained. PROCEDURE IN DETAIL: The patient was identified in the preoperative holding area. The correct left hip was marked by me. The patient was taken to the operating room, where a general anesthetic was used. Preoperative antibiotics were given intravenously. The HANA table was used and the well leg was placed in a padded lithotomy leg brady while the foot of the fractured left leg was placed in a traction foot boot. A time-out procedure was performed. The image intensifier was used, and a preliminary reduction performed and the fracture site confirmed. The hip area was prepped sterilely with ChloraPrep solution and a sterile barrier [place] hip drape was used. An incision was made over the superior aspect of the greater trochanter. A periarticular injection of ropivacaine epinephrine and morphine was used. A guide pin was placed at the tip of the greater trochanter, and an entry reamer was used. The intramedullary nail was attached to a guide and then was placed down the canal, and positioned using the image intensifier. A second incision was now used over the lower part of the greater trochanter, to place a guide pin through the guide and the sleeves, close to the center-center position of the femoral head, and the guide wire was measured. The tunnel for the lag screw was reamed. The lag screw was placed through the nail using the guide. A proximal locking screw was now placed to lock the lag screw. Finally, a distal cross lock screw was placed using the triple sleeve device through the guide. Screw position was confirmed with the image intensifier. Satisfactory reduction and fixation was confirmed using image intensifier views in multiple planes. Copious irrigation was used and the incision was now closed in layers by Ms. Nichols, with #2 Vicryl, 2-0 Vicryl and urban. A bulky sterile dressing was applied. The patient was gently transferred from the fracture table back to a hospital bed. There were no apparent complications. BERT MAYEN MD September 04, 2016 19:06
[2016-09-04] MEDS ORDERED: DEXTROSE 50% 25 GM / 50ML DISP.SYRIN. IV PRN (19:30)
[2016-09-04] MEDS ORDERED: HYDROcodone/APAP 7.5/325MG 1 TAB TABLET PO PRN ×2 (19:30)
[2016-09-04] MEDS ORDERED: MORPHINE SULFATE 4 MG/ML DISP.SYRIN. IV PRN (19:30)
[2016-09-04] MEDS ORDERED: POLYETHYLENE GLYCOL 3350 17 GM PACKET. PO PRN (19:30)
[2016-09-04] MEDS: ASPIRIN 325 MG TABLET PO SCH (21:00)
[2016-09-04] MEDS: METOPROLOL TART IMMED RELEASE 50 MG TABLET. PO SCH (21:00)
[2016-09-04] MEDS: MORPHINE SULFATE 2 MG/ML DISP.SYRIN. IV PRN (22:21)
[2016-09-05] MEDS: IV NORMAL SALINE 1000ML BAG 1,000 ML IV SCH (00:43)
[2016-09-05 03:23] VITALS: BP 123/70
[2016-09-05 05:16] LABS: BASO % 0 % (0-3); EOS % 0 % (0-3); HEMATOCRIT 26.4 % (36.0-47.0); HEMOGLOBIN 8.7 g/dL (12.0-15.5); LYMPH # 0.7 x10^3/uL (1.0-4.8); LYMPH % 8 % (24-48); MEAN CORPUSCULAR HEMOGLOBIN 31 pg (25-35); MEAN CORPUSCULAR HGB CONC 33 g/dL (31-37); MEAN CORPUSCULAR VOLUME 93 fL (79-100); MONO % 6 % (0-9); NEUT % 86 % (31-73); PLATELET COUNT 214 x10^3/uL (140-400); RED BLOOD COUNT 2.85 x10^6/uL (3.50-5.40); RED CELL DISTRIBUTION WIDTH 13.8 % (11.5-14.5); WHITE BLOOD COUNT 9.2 x10^3/uL (4.0-11.0)
[2016-09-05 05:34] LABS: CALCIUM 9.4 mg/dL (8.5-10.1); CREATININE 1.3 mg/dL (0.6-1.0); GFR 38.8; POTASSIUM 4.6 mmol/L (3.5-5.1)
[2016-09-05] MEDS ORDERED: MAGNESIUM HYDROXIDE 2,400 MG/30 ML ORAL.SUSP. PO PRN (06:00)
[2016-09-05 06:21] LABS: PLT ESTIMATE ADEQUATE (ADEQUATE)
[2016-09-05 07:00] VITALS: BP 118/39
[2016-09-05] MEDS ORDERED: CHOLECALCIFEROL (VITAMIN D3) 1,000 UNIT TABLET PO SCH (09:00)
[2016-09-05] MEDS: SENNOSIDES/DOCUSATE 8.6/50MG TABLET. PO SCH (09:04)
[2016-09-05] MEDS: METOPROLOL TART IMMED RELEASE 50 MG TABLET. PO SCH ×2 (09:07→20:50)
[2016-09-05] MEDS: ACETAMINOPHEN 500 MG TABLET PO SCH (09:07)
[2016-09-05] MEDS: buPROPion XL 150 MG TAB.ER.24H. PO SCH (09:07)
[2016-09-05] MEDS: ASPIRIN 325 MG TABLET PO SCH ×2 (09:08→20:50)
[2016-09-05] MEDS: LISINOPRIL 10 MG TABLET PO SCH (09:08)
[2016-09-05] MEDS: predniSONE 10 MG TABLET PO SCH (09:08)
[2016-09-05] MEDS: oxyCODONE IR 5 MG TABLET PO PRN ×3 (09:13→21:35)
[2016-09-05 11:00] VITALS: BP 95/52
--- NOTE | 2016-09-05 12:17 | PDOC ---
Provider Note Provider Note Pt seen, H&P dictated. #[id number] FAHAD OCHOA MD September 05, 2016 12:17
--- NOTE | 2016-09-05 12:45 | PDOC ---
PROGRESS NOTES Subjective Subjective She had some pain when out of bed but overall says her hip doesn't feel too badly. Objective Vital Signs Vital Signs Date Time Temp Pulse Resp B/P (MAP) Pulse Ox O2 Delivery O2 Flow Rate FiO2 09/05/16 11:00 98.4 74 20 95/52 (66) 99 Nasal Cannula 2.0 98.4 Physical Exam The dressing is dry. She can dorsiflex the toes. The calf is soft and nontender. Labs Laboratory Tests Test 09/04/16 11:20 09/04/16 12:20 09/05/16 04:15 White Blood Count 8.7 x10^3/uL (4.0-11.0) 9.2 x10^3/uL (4.0-11.0) Red Blood Count 3.48 x10^6/uL (3.50-5.40) 2.85 x10^6/uL (3.50-5.40) Hemoglobin 10.5 g/dL (12.0-15.5) 8.7 g/dL (12.0-15.5) Hematocrit 31.6 % (36.0-47.0) 26.4 % (36.0-47.0) Mean Corpuscular Volume 91 fL (79-100) 93 fL (79-100) Mean Corpuscular Hemoglobin 30 pg (25-35) 31 pg (25-35) Mean Corpuscular Hemoglobin Concent 33 g/dL (31-37) 33 g/dL (31-37) Red Cell Distribution Width 14.1 % (11.5-14.5) 13.8 % (11.5-14.5) Platelet Count 248 x10^3/uL (140-400) 214 x10^3/uL (140-400) Neutrophils (%) (Auto) 73 % (31-73) 86 % (31-73) Lymphocytes (%) (Auto) 17 % (24-48) 8 % (24-48) Monocytes (%) (Auto) 9 % (0-9) 6 % (0-9) Eosinophils (%) (Auto) 2 % (0-3) 0 % (0-3) Basophils (%) (Auto) 1 % (0-3) 0 % (0-3) Neutrophils # (Auto) 6.3 x10^3uL (1.8-7.7) 8.0 x10^3uL (1.8-7.7) Lymphocytes # (Auto) 1.4 x10^3/uL (1.0-4.8) 0.7 x10^3/uL (1.0-4.8) Monocytes # (Auto) 0.7 x10^3/uL (0.0-1.1) 0.6 x10^3/uL (0.0-1.1) Eosinophils # (Auto) 0.1 x10^3/uL (0.0-0.7) 0.0 x10^3/uL (0.0-0.7) Basophils # (Auto) 0.1 x10^3/uL (0.0-0.2) 0.0 x10^3/uL (0.0-0.2) Prothrombin Time 12.3 SEC (11.7-14.0) Prothromb Time International Ratio 1.0 (0.8-1.1) Sodium Level 142 mmol/L (136-145) 142 mmol/L (136-145) Potassium Level 4.1 mmol/L (3.5-5.1) 4.6 mmol/L (3.5-5.1) Chloride Level 105 mmol/L (98-107) 109 mmol/L (98-107) Carbon Dioxide Level 25 mmol/L (21-32) 25 mmol/L (21-32) Anion Gap 12 (6-14) 8 (6-14) Blood Urea Nitrogen 29 mg/dL (7-20) 21 mg/dL (7-20) Creatinine 1.5 mg/dL (0.6-1.0) 1.3 mg/dL (0.6-1.0) Estimated GFR (Cockcroft-Gault) 32.9 38.8 BUN/Creatinine Ratio 19 (6-20) Glucose Level 98 mg/dL (70-99) 160 mg/dL (70-99) Calcium Level 9.5 mg/dL (8.5-10.1) 9.4 mg/dL (8.5-10.1) Total Bilirubin 0.5 mg/dL (0.2-1.0) Aspartate Amino Transf (AST/SGOT) 14 U/L (15-37) Alanine Aminotransferase (ALT/SGPT) 14 U/L (14-59) Alkaline Phosphatase 73 U/L (46-116) Total Protein 6.0 g/dL (6.4-8.2) Albumin 3.3 g/dL (3.4-5.0) Albumin/Globulin Ratio 1.2 (1.0-1.7) 25-Hydroxy Vitamin D Total 16.2 ng/mL (30.0-100.0) Urine Collection Type Unknown Urine Color Yellow Urine Clarity Clear Urine pH 7.0 Urine Specific [place] 1.010 Urine Protein Negative mg/dL (NEG-TRACE) Urine Glucose (UA) Negative mg/dL (NEG) Urine Ketones (Stick) Negative mg/dL (NEG) Urine Blood Negative (NEG) Urine Nitrite Negative (NEG) Urine Bilirubin Negative (NEG) Urine Urobilinogen Dipstick 0.2 mg/dL (0.2 mg/dL) Urine Leukocyte Esterase Negative (NEG) Urine RBC 0 /HPF (0-2) Urine WBC Occ /HPF (0-4) Urine Squamous Epithelial Cells Few /LPF Urine Transitional Epithelial Cells Occ /LPF Urine Amorphous Sediment Present /HPF Urine Bacteria 0 /HPF (0-FEW) Segmented Neutrophils % 88 % (35-66) Lymphocytes % 3 % (24-48) Monocytes % 9 % (0-10) Platelet Estimate Adequate (ADEQUATE) Laboratory Tests Test 09/05/16 04:15 White Blood Count 9.2 x10^3/uL (4.0-11.0) Red Blood Count 2.85 x10^6/uL (3.50-5.40) Hemoglobin 8.7 g/dL (12.0-15.5) Hematocrit 26.4 % (36.0-47.0) Mean Corpuscular Volume 93 fL (79-100) Mean Corpuscular Hemoglobin 31 pg (25-35) Mean Corpuscular Hemoglobin Concent 33 g/dL (31-37) Red Cell Distribution Width 13.8 % (11.5-14.5) Platelet Count 214 x10^3/uL (140-400) Neutrophils (%) (Auto) 86 % (31-73) Lymphocytes (%) (Auto) 8 % (24-48) Monocytes (%) (Auto) 6 % (0-9) Eosinophils (%) (Auto) 0 % (0-3) Basophils (%) (Auto) 0 % (0-3) Neutrophils # (Auto) 8.0 x10^3uL (1.8-7.7) Lymphocytes # (Auto) 0.7 x10^3/uL (1.0-4.8) Monocytes # (Auto) 0.6 x10^3/uL (0.0-1.1) Eosinophils # (Auto) 0.0 x10^3/uL (0.0-0.7) Basophils # (Auto) 0.0 x10^3/uL (0.0-0.2) Segmented Neutrophils % 88 % (35-66) Lymphocytes % 3 % (24-48) Monocytes % 9 % (0-10) Platelet Estimate Adequate (ADEQUATE) Sodium Level 142 mmol/L (136-145) Potassium Level 4.6 mmol/L (3.5-5.1) Chloride Level 109 mmol/L (98-107) Carbon Dioxide Level 25 mmol/L (21-32) Anion Gap 8 (6-14) Blood Urea Nitrogen 21 mg/dL (7-20) Creatinine 1.3 mg/dL (0.6-1.0) Estimated GFR (Cockcroft-Gault) 38.8 Glucose Level 160 mg/dL (70-99) Calcium Level 9.4 mg/dL (8.5-10.1) Assessment Assessment Postoperative day 1 after left hip nail. Her vitamin D was very low. She has Hypovitaminosis D. Problems: Plan Plan of Care Supplemental vitamin D. Continue DVT prophylaxis. Weightbearing as tolerated with a walker. Discharge planning. BERT BOSS MD September 05, 2016 12:45
[2016-09-05] MEDS ORDERED: ERGOCALCIFEROL (VITAMIN D2) 50,000 UNIT CAPSULE. PO SCH (13:00)
--- NOTE | 2016-09-05 13:16 | EKG ---
[facility] [address] [place] [address] Test Date: 2016-09-04 Test Time: 10:31:02 Pat Name: CHANTE ZAIDI Department: Room: [facility] Gender: F Emergency Vehicle Driver: : [id number] Requested By: FAHAD OCHOA Order Number: [id number] Reading MD: Nan Talbot Measurements Intervals [place] Rate: 53 P: 90 HI: 142 QRS: 49 QRSD: 80 T: 32 QT: 414 QTc: 391 Interpretive Statements SINUS RHYTHM ATRIAL PREMATURE COMPLEX(ES) Electronically Signed On 09-06-2016 15:32:09 CDT by Nan Talbot
[2016-09-05 15:00] VITALS: BP 120/48
--- NOTE | 2016-09-05 15:55 | HP ---
ADMIT DATE: 09/04/2016 PATIENT LOCATION: 432. REASON FOR ADMISSION TO THE HOSPITAL: Mechanical fall at home, left hip fracture. HISTORY OF PRESENT ILLNESS: The patient is an 85-year-old female with history of chronic COPD, hypertension, paroxysmal AFib as well as hyperthyroidism, osteoporosis, scoliosis. 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 The patient was taken to surgery, intramedullary nailing was done and the patient was admitted to the hospital. PAST MEDICAL HISTORY: As mentioned, history of COPD; active smoker; osteoporosis; scoliosis; hypertension; atrial fibrillation, paroxysmal, not a candidate for anticoagulation; history of GI bleed as well as falls and also hyperthyroidism. PAST SURGICAL HISTORY: Had a hysterectomy. ALLERGIES: None. PERSONAL HISTORY: Smokes half pack to 1 pack for 50 years at least. Denies alcohol or street drugs. MEDICATIONS AT HOME: Tylenol, aspirin 81 mg daily, bupropion XL 150 mg daily, diltiazem 240 mg daily, guaifenesin 600 mg daily, lisinopril 10 mg daily, metoprolol 50 mg twice a day, Protonix 40 mg daily, prednisone 10 mg daily. She was supposed to be on Tapazole, I am not sure if she is taking that or not. FAMILY HISTORY: Unremarkable. SOCIAL HISTORY: She lives at an apartment and her daughter is DPOA, comes and visits her every day. PHYSICAL EXAMINATION: GENERAL: The patient is not in pain, sitting in a chair. VITAL SIGNS: At the time of admission shows temperature 99.2, pulse 88, respirations 22, blood pressure 167/75, 100% on mask, now is 97 on 2 liters. HEENT: Head is atraumatic. Pupils equal. Oral cavity: Dentures. NECK: Supple. Thyroid not enlarged, JVD not elevated. CHEST: Symmetrical, COPD pattern. CARDIOVASCULAR: S1, S2. No murmurs, irregular slightly. LUNGS: Clear to auscultation. Decreased breath sounds. ABDOMEN: Soft, bowel sounds present, no mass palpable. EXTERNAL GENITALIA: Duenas placed yesterday after the surgery. MUSCULOSKELETAL: The patient has a dressing in the left hip. Foot, no ulcerations and leg, no swellings. LABORATORY DATA: White count 8.7, hemoglobin 10.5, platelets 248. Electrolytes show sodium 142, potassium 4.1, chloride 105, bicarbonate 25, BUN 29, creatinine 1.5, came down to 1.3 creatinine. LFTs were normal. Vitamin D was low at 16. INR 1.0. Urine was negative. IMAGING DATA: Had a CT head negative. X-rays of the chest, COPD. X-rays of the hip shows left hip fracture. FINAL IMPRESSION: 1. Mechanical fall at home in the driveway. 2. Left hip fracture, had an intramedullary nailing done last night. 3. Chronic obstructive pulmonary disease. 4. Paroxysmal atrial fibrillation ,not a candidate for anticoagulation. 5. Hyperthyroidism. 6. Osteoporosis. PLAN: At this time, admit to hospital. The patient had surgery done. Postop care, PT, OT, DVT prevention and vitamin D supplementation and smoking counseling was done. FAHAD OCHOA MD DR: ROHAN/itz JOB#: [id number] / [id number] PATTI
[2016-09-05] MEDS: CHOLECALCIFEROL (VITAMIN D3) 5,000 UNIT CAPSULE PO SCH (15:58)
[2016-09-05] MEDS ORDERED: BISACODYL 10 MG SUPP.RECT. PR PRN (16:00)
[2016-09-05 19:12] VITALS: BP 141/57
[2016-09-05 19:56] LABS: HEMATOCRIT 22.2 % (36.0-47.0); HEMOGLOBIN 7.8 g/dL (12.0-15.5)
[2016-09-05] MEDS: MORPHINE SULFATE 2 MG/ML DISP.SYRIN. IV PRN (21:40)
[2016-09-05 23:08] VITALS: BP 132/77
[2016-09-06 03:30] VITALS: BP 146/60
[2016-09-06 04:22] LABS: CALCIUM 9.2 mg/dL (8.5-10.1); CREATININE 1.3 mg/dL (0.6-1.0); GFR 38.8; POTASSIUM 4.2 mmol/L (3.5-5.1)
[2016-09-06 07:00] VITALS: BP 168/54
[2016-09-06] MEDS: ASPIRIN 325 MG TABLET PO SCH ×2 (08:24→21:32)
[2016-09-06] MEDS: buPROPion XL 150 MG TAB.ER.24H. PO SCH (08:24)
[2016-09-06] MEDS: CHOLECALCIFEROL (VITAMIN D3) 5,000 UNIT CAPSULE PO SCH (08:24)
[2016-09-06] MEDS: ACETAMINOPHEN 500 MG TABLET PO SCH (08:25)
[2016-09-06] MEDS: METOPROLOL TART IMMED RELEASE 50 MG TABLET. PO SCH ×2 (08:25→21:00)
[2016-09-06] MEDS: predniSONE 10 MG TABLET PO SCH (08:26)
[2016-09-06] MEDS: oxyCODONE IR 5 MG TABLET PO PRN ×2 (08:26→21:33)
[2016-09-06] MEDS: SENNOSIDES/DOCUSATE 8.6/50MG TABLET. PO SCH (08:26)
[2016-09-06] MEDS: LISINOPRIL 10 MG TABLET PO SCH (08:26)
[2016-09-06] MEDS ORDERED: CHOLECALCIFEROL (VITAMIN D3) 5,000 UNIT CAPSULE PO SCH (09:00)
--- NOTE | 2016-09-06 10:57 | PDOC ---
PROGRESS NOTES Subjective Subjective no complaints Objective Objective Vital Signs Date Time Temp Pulse Resp B/P (MAP) Pulse Ox O2 Delivery O2 Flow Rate FiO2 09/06/16 09:26 16 Room Air 09/06/16 08:26 2.0 09/06/16 08:26 53 168/54 09/06/16 07:00 97.9 99 97.9 Intake and Output 09/06/16 07:00 Intake Total 2010 ml Output Total 850 ml Balance 1160 ml Intake Oral 1960 ml IV Total 50 ml Output Urine Total 850 ml Physical Exam Abdomen: Soft Heart: Regular rate Extremities: No clubbing, No cyanosis, Normal pulses, Other (BLE trace pedal edema) General: Alert, Oriented X3, Cooperative, No acute distress HEENT: Atraumatic, EOMI, Other (Deaf in her left ear. Hears well from her right ear.) Lungs: Normal air movement MUSCULOSKELETAL: Other (No abrasion or ecchymosis noted over left hip. Left lower extremity shortened and rotated. Attempted motion of left hip is painful. Calf soft and nontender with negative Ciro's. Good df/pf. Peripheral pulses intact. SILT.) Neuro: Normal speech, Sensation intact Psych/Mental Status: Mental status NL, Mood NL Skin: No rashes, No breakdown, No significant lesion, Other (Abrasion and ecchymosis to left elbow) COMMENT kaylie present Diagnosis Problem List Problems Medical Problems: (1) Intertrochanteric fracture of left hip Status: Acute (2) Renal insufficiency Status: Acute FINAL IMPRESSION: 1. Mechanical fall at home in the driveway. 2. Left hip fracture, had an intramedullary nailing done. 3. Chronic obstructive pulmonary disease. 4. Paroxysmal atrial fibrillation. 5. Hyperthyroidism. 6. Osteoporosis. PLAN: POD #2 lt hip nailing. pt/ot/rehab. DVT prevention Lovenox. needs snu. Assessment Assessment Problems Medical Problems: (1) Intertrochanteric fracture of left hip Status: Acute (2) Renal insufficiency Status: Acute Problems: Plan Plan of Care Problems Medical Problems: (1) Intertrochanteric fracture of left hip Status: Acute (2) Renal insufficiency Status: Acute Comment Review of Relevant I have reviewed the following items royce (where applicable) has been applied. Labs Laboratory Tests Test 09/05/16 19:30 09/06/16 03:30 Hemoglobin 7.8 g/dL (12.0-15.5) Hematocrit 22.2 % (36.0-47.0) Mean Corpuscular Hemoglobin Concent 35 g/dL (31-37) Sodium Level 140 mmol/L (136-145) Potassium Level 4.2 mmol/L (3.5-5.1) Chloride Level 106 mmol/L (98-107) Carbon Dioxide Level 22 mmol/L (21-32) Anion Gap 12 (6-14) Blood Urea Nitrogen 24 mg/dL (7-20) Creatinine 1.3 mg/dL (0.6-1.0) Estimated GFR (Cockcroft-Gault) 38.8 Glucose Level 122 mg/dL (70-99) Calcium Level 9.2 mg/dL (8.5-10.1) Thyroid Stimulating Hormone (TSH) 0.801 uIU/mL (0.358-3.74) Medications Current Medications Bisacodyl (Dulcolax Supp) 10 mg 1X PRN PRN [place] CONSTIPATION; Start 09/05/16 at 16:00; Stop 09/06/16 at 15:59 Ergocalciferol (Vitamin D2) 50,000 unit Sa PO Last administered on 09/05/16 15 :58; Start 09/05/16 at 13:00 Ergocalciferol (Vitamin D2) 50,000 unit WEEKLY PO ; Start 09/12/16 at 09:00; Stop 09/12/16 at 09:00; Status DC Vitamin D (Vitamin D3) 5,000 unit DAILY PO Last administered on 09/06/16 08:24 ; Start 09/05/16 at 13:00 Vitamin D (Vitamin D3) 5,000 unit DAILY PO ; Start 09/06/16 at 09:00; Status Cancel Vitals/I & O Vital Sign - Last 24 Hours 09/05/16 09/05/16 09/05/16 09/05/16 11:00 15:00 15:58 16:58 Temp 98.4 98.2 98.4 98.2 Pulse 74 72 Resp 20 20 16 B/P (MAP) 95/52 (66) 120/48 (72) Pulse Ox 99 98 O2 Delivery Nasal Cannula Nasal Cannula Nasal Cannula O2 Flow Rate 2.0 2.0 2.0 2.0 09/05/16 09/05/16 09/05/1627/17 17:50 18:52 19:12 20:50 Temp 98.2 98.2 Pulse 83 83 Resp 20 16 18 B/P (MAP) 141/57 (85) 141/57 Pulse Ox 99 O2 Delivery Nasal Cannula Nasal Cannula Nasal Cannula O2 Flow Rate 2.0 2.0 2.0 09/05/16 09/06/16 09/06/16 09/06/16 23:08 03:30 07:00 08:25 Temp 98.2 97.9 98.2 97.9 Pulse 77 71 53 53 Resp 18 16 20 B/P (MAP) 132/77 (95) 146/60 (88) 168/54 (92) 168/54 Pulse Ox 100 100 99 O2 Delivery Nasal Cannula Nasal Cannula Room Air O2 Flow Rate 2.0 2.0 2.0 09/06/16 09/06/16 09/06/16 09/06/16 08:25 08:26 08:26 09:26 Pulse 53 53 Resp 16 16 B/P (MAP) 168/54 168/54 O2 Delivery Nasal Cannula Room Air O2 Flow Rate 2.0 Intake and Output 09/05/16 09/05/16 09/06/16 15:00 23:00 07:00 Intake Total 250 ml 1360 ml 400 ml Output Total 550 ml 300 ml Balance 250 ml 810 ml 100 ml FAHAD OCHOA MD September 06, 2016 10:57
[2016-09-06 11:10] VITALS: BP 128/53
[2016-09-06] MEDS: ENOXAPARIN 30 MG/0.3 ML SYRINGE. SQ SCH (11:45)
--- NOTE | 2016-09-06 14:46 | PDOC ---
PROGRESS NOTES Subjective Subjective She was pleasant and cooperative but a bit forgetful. She has been up but is still somewhat guarding the hip. Objective Vital Signs Vital Signs Date Time Temp Pulse Resp B/P (MAP) Pulse Ox O2 Delivery O2 Flow Rate FiO2 09/06/16 11:10 98.3 55 16 128/53 (78) 98 Nasal Cannula 2.0 98.3 Physical Exam The dressing is dry. She does not seem symptomatic from the hemoglobin of 7.8. Labs Laboratory Tests Test 09/05/16 04:15 09/05/16 19:30 09/06/16 03:30 White Blood Count 9.2 x10^3/uL (4.0-11.0) Red Blood Count 2.85 x10^6/uL (3.50-5.40) Hemoglobin 8.7 g/dL (12.0-15.5) 7.8 g/dL (12.0-15.5) Hematocrit 26.4 % (36.0-47.0) 22.2 % (36.0-47.0) Mean Corpuscular Volume 93 fL (79-100) Mean Corpuscular Hemoglobin 31 pg (25-35) Mean Corpuscular Hemoglobin Concent 33 g/dL (31-37) 35 g/dL (31-37) Red Cell Distribution Width 13.8 % (11.5-14.5) Platelet Count 214 x10^3/uL (140-400) Neutrophils (%) (Auto) 86 % (31-73) Lymphocytes (%) (Auto) 8 % (24-48) Monocytes (%) (Auto) 6 % (0-9) Eosinophils (%) (Auto) 0 % (0-3) Basophils (%) (Auto) 0 % (0-3) Neutrophils # (Auto) 8.0 x10^3uL (1.8-7.7) Lymphocytes # (Auto) 0.7 x10^3/uL (1.0-4.8) Monocytes # (Auto) 0.6 x10^3/uL (0.0-1.1) Eosinophils # (Auto) 0.0 x10^3/uL (0.0-0.7) Basophils # (Auto) 0.0 x10^3/uL (0.0-0.2) Segmented Neutrophils % 88 % (35-66) Lymphocytes % 3 % (24-48) Monocytes % 9 % (0-10) Platelet Estimate Adequate (ADEQUATE) Sodium Level 142 mmol/L (136-145) 140 mmol/L (136-145) Potassium Level 4.6 mmol/L (3.5-5.1) 4.2 mmol/L (3.5-5.1) Chloride Level 109 mmol/L (98-107) 106 mmol/L (98-107) Carbon Dioxide Level 25 mmol/L (21-32) 22 mmol/L (21-32) Anion Gap 8 (6-14) 12 (6-14) Blood Urea Nitrogen 21 mg/dL (7-20) 24 mg/dL (7-20) Creatinine 1.3 mg/dL (0.6-1.0) 1.3 mg/dL (0.6-1.0) Estimated GFR (Cockcroft-Gault) 38.8 38.8 Glucose Level 160 mg/dL (70-99) 122 mg/dL (70-99) Calcium Level 9.4 mg/dL (8.5-10.1) 9.2 mg/dL (8.5-10.1) Thyroid Stimulating Hormone (TSH) 0.801 uIU/mL (0.358-3.74) Laboratory Tests Test 09/05/16 19:30 09/06/16 03:30 Hemoglobin 7.8 g/dL (12.0-15.5) Hematocrit 22.2 % (36.0-47.0) Mean Corpuscular Hemoglobin Concent 35 g/dL (31-37) Sodium Level 140 mmol/L (136-145) Potassium Level 4.2 mmol/L (3.5-5.1) Chloride Level 106 mmol/L (98-107) Carbon Dioxide Level 22 mmol/L (21-32) Anion Gap 12 (6-14) Blood Urea Nitrogen 24 mg/dL (7-20) Creatinine 1.3 mg/dL (0.6-1.0) Estimated GFR (Cockcroft-Gault) 38.8 Glucose Level 122 mg/dL (70-99) Calcium Level 9.2 mg/dL (8.5-10.1) Thyroid Stimulating Hormone (TSH) 0.801 uIU/mL (0.358-3.74) Assessment Assessment Postoperative day 2 after intramedullary nailing of left hip intertrochanteric fracture Acute blood loss anemia Problems: Plan Plan of Care Continue weightbearing as tolerated. Rehabilitation consult and discharge planning. Discontinue the Duenas catheter. I agree with no transfusion at this time. BERT BOSS MD September 06, 2016 14:46
[2016-09-06 15:08] VITALS: BP 129/46
[2016-09-06 19:54] VITALS: BP 87/39
[2016-09-06] MEDS: IV NORMAL SALINE 1000ML BAG 1,000 ML IV SCH (22:30)
--- NOTE | 2016-09-06 22:31 | CONS ---
DATE OF CONSULTATION: 09/06/2016 ATTENDING PHYSICIAN: Dr. Oliver. The patient was seen at the request of Dr. Oliver for rehab evaluation. HISTORY OF PRESENT ILLNESS: This is an 85-year-old female with chronic obstructive pulmonary disease, hypertension, paroxysmal atrial fibrillation as well as hyperthyroidism, osteoporosis, scoliosis. While trying to vegetable picker mail, she fell in the driveway and she sustained an injury to her left hip. She was found with fractured neck left femur intertrochanteric, underwent hip nailing. Postop, she complains of pain in her left hip. The patient is an active smoker, not a candidate for anticoagulation, history of previous GI bleed, had hysterectomy and also left ankle surgeries. She admits some numbness in her left foot from that one. She smokes half to one pack of cigarettes for 50 years at least. The patient recently moved from [place] to [facility] where she has been living in an apartment, no stairs for her to manage. Her daughter comes and checks on her once a week. PHYSICAL EXAMINATION: Today revealed an elderly female, she is alert, oriented to place and person, follows commands appropriately, moves all 4 extremities voluntarily where she had 4/5 grade muscle strength with relatively increased weakness in hand intrinsic muscles and also left hip girdle muscles secondary to pain. She has some edema of her left hip and left thigh. The patient had muscle atrophy involving hand intrinsic muscles and also right thenar eminence muscles. Positive Tinel sign over right ____. She had decreased sensory perception over the palmar aspect of right hand over median nerve distribution. The patient had 1-2+ deep tendon reflexes with absent ankle jerks. She requires significant help with bed mobility and transfers as per nursing staff ____ personal assistance with transfers. She had an indwelling Duenas catheter in place. No bowel movement postop. She had dressing to her left hip area. ASSESSMENT: 1. Mobility and self-care limitation in a patient status post left hip nailing per intratrochanteric fracture neck, left femur, onset 09/05/2016. 2. Chronic obstructive pulmonary disease. 3. Paroxysmal atrial fibrillation. 4. Hyperthyroidism. 5. Previous gastrointestinal bleed. 6. Osteoporosis. 7. Scoliosis. 8. 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 RECOMMENDATIONS: Agree with the plan for physical therapy and occupational therapy. She needs to go to a alf care unit for continued care before she can return home. Dr. Oliver, I appreciate asking me to participate in the care of this interesting patient. I will be glad to follow her with you as needed for her rehabilitation. MADHURI GILLESPIE MD DR: JODY/itz JOB#: [id number] / [id number]
[2016-09-06 23:11] VITALS: BP 108/43
[2016-09-07] MEDS: oxyCODONE IR 5 MG TABLET PO PRN ×4 (00:36→23:18)
[2016-09-07 03:08] VITALS: BP 114/54
[2016-09-07 07:00] VITALS: BP 120/72
[2016-09-07 07:23] LABS: BASO # 0.1 x10^3/uL (0.0-0.2); BASO % 1 % (0-3); EOS % 2 % (0-3); HEMATOCRIT 22.3 % (36.0-47.0); HEMOGLOBIN 7.3 g/dL (12.0-15.5); LYMPH # 1.6 x10^3/uL (1.0-4.8); LYMPH % 14 % (24-48); MEAN CORPUSCULAR HEMOGLOBIN 30 pg (25-35); MEAN CORPUSCULAR HGB CONC 33 g/dL (31-37); MEAN CORPUSCULAR VOLUME 92 fL (79-100); MONO % 9 % (0-9); NEUT % 74 % (31-73); PLATELET COUNT 205 x10^3/uL (140-400); RED BLOOD COUNT 2.43 x10^6/uL (3.50-5.40); RED CELL DISTRIBUTION WIDTH 14.3 % (11.5-14.5); WHITE BLOOD COUNT 11.3 x10^3/uL (4.0-11.0)
[2016-09-07] MEDS: buPROPion XL 150 MG TAB.ER.24H. PO SCH (07:46)
[2016-09-07] MEDS: ACETAMINOPHEN 500 MG TABLET PO SCH (09:14)
[2016-09-07] MEDS: SENNOSIDES/DOCUSATE 8.6/50MG TABLET. PO SCH (09:15)
[2016-09-07] MEDS: BISACODYL 5 MG TABLET.DR. PO SCH (09:15)
[2016-09-07] MEDS: CHOLECALCIFEROL (VITAMIN D3) 5,000 UNIT CAPSULE PO SCH (09:15)
[2016-09-07] MEDS: ASPIRIN 325 MG TABLET PO SCH ×2 (09:15→23:18)
[2016-09-07] MEDS: predniSONE 10 MG TABLET PO SCH (09:15)
[2016-09-07] MEDS: LISINOPRIL 10 MG TABLET PO SCH (09:16)
[2016-09-07] MEDS: METOPROLOL TART IMMED RELEASE 50 MG TABLET. PO SCH ×2 (09:19→23:19)
[2016-09-07] MEDS: IV NORMAL SALINE 1000ML BAG 1,000 ML IV SCH (09:21)
--- NOTE | 2016-09-07 10:27 | PDOC ---
PROGRESS NOTES Subjective Subjective She feels better.She continues with left hip pain and she is constipated. Objective Objective Vital Signs Date Time Temp Pulse Resp B/P (MAP) Pulse Ox O2 Delivery O2 Flow Rate FiO2 09/07/16 09:19 69 120/72 09/07/16 07:00 98.3 18 92 Room Air 98.3 09/06/16 15:08 2.0 Intake and Output 09/07/16 07:00 Intake Total 960 ml Output Total 1000 ml Balance -40 ml Intake Oral 960 ml Output Urine Total 1000 ml Physical Exam Physical Exam She is supine in bed and does not seem to be in any acute distress and she continues with pain of movement of left hip with some edema around and she is protecting her left hip.She is anemic.She requires 2 person help with transfers.She had Duenas catheter in. Assessment Assessment Problems Medical Problems: (1) Intertrochanteric fracture of left hip Status: Acute (2) Renal insufficiency Status: Acute Plan Plan of Care To encourage her to get up more and to SNF when medically stable. Comment Review of Relevant I have reviewed the following items royce (where applicable) has been applied. Labs Laboratory Tests Test 09/05/16 19:30 09/06/16 03:30 09/07/16 07:13 Hemoglobin 7.8 g/dL (12.0-15.5) 7.3 g/dL (12.0-15.5) Hematocrit 22.2 % (36.0-47.0) 22.3 % (36.0-47.0) Mean Corpuscular Hemoglobin Concent 35 g/dL (31-37) 33 g/dL (31-37) Sodium Level 140 mmol/L (136-145) Potassium Level 4.2 mmol/L (3.5-5.1) Chloride Level 106 mmol/L (98-107) Carbon Dioxide Level 22 mmol/L (21-32) Anion Gap 12 (6-14) Blood Urea Nitrogen 24 mg/dL (7-20) Creatinine 1.3 mg/dL (0.6-1.0) Estimated GFR (Cockcroft-Gault) 38.8 Glucose Level 122 mg/dL (70-99) Calcium Level 9.2 mg/dL (8.5-10.1) Thyroid Stimulating Hormone (TSH) 0.801 uIU/mL (0.358-3.74) White Blood Count 11.3 x10^3/uL (4.0-11.0) Red Blood Count 2.43 x10^6/uL (3.50-5.40) Mean Corpuscular Volume 92 fL (79-100) Mean Corpuscular Hemoglobin 30 pg (25-35) Red Cell Distribution Width 14.3 % (11.5-14.5) Platelet Count 205 x10^3/uL (140-400) Neutrophils (%) (Auto) 74 % (31-73) Lymphocytes (%) (Auto) 14 % (24-48) Monocytes (%) (Auto) 9 % (0-9) Eosinophils (%) (Auto) 2 % (0-3) Basophils (%) (Auto) 1 % (0-3) Neutrophils # (Auto) 8.3 x10^3uL (1.8-7.7) Lymphocytes # (Auto) 1.6 x10^3/uL (1.0-4.8) Monocytes # (Auto) 1.0 x10^3/uL (0.0-1.1) Eosinophils # (Auto) 0.3 x10^3/uL (0.0-0.7) Basophils # (Auto) 0.1 x10^3/uL (0.0-0.2) Laboratory Tests Test 09/07/16 07:13 White Blood Count 11.3 x10^3/uL (4.0-11.0) Red Blood Count 2.43 x10^6/uL (3.50-5.40) Hemoglobin 7.3 g/dL (12.0-15.5) Hematocrit 22.3 % (36.0-47.0) Mean Corpuscular Volume 92 fL (79-100) Mean Corpuscular Hemoglobin 30 pg (25-35) Mean Corpuscular Hemoglobin Concent 33 g/dL (31-37) Red Cell Distribution Width 14.3 % (11.5-14.5) Platelet Count 205 x10^3/uL (140-400) Neutrophils (%) (Auto) 74 % (31-73) Lymphocytes (%) (Auto) 14 % (24-48) Monocytes (%) (Auto) 9 % (0-9) Eosinophils (%) (Auto) 2 % (0-3) Basophils (%) (Auto) 1 % (0-3) Neutrophils # (Auto) 8.3 x10^3uL (1.8-7.7) Lymphocytes # (Auto) 1.6 x10^3/uL (1.0-4.8) Monocytes # (Auto) 1.0 x10^3/uL (0.0-1.1) Eosinophils # (Auto) 0.3 x10^3/uL (0.0-0.7) Basophils # (Auto) 0.1 x10^3/uL (0.0-0.2) Medications Current Medications Sodium Chloride 1,000 ml @ 100 mls/hr Q10H IV Last administered on 09/04/16 10:44; Start 09/04/16 at 10:25; Stop 09/04/16 at 20:24; Status DC Fentanyl Citrate (Fentanyl 2ml Vial) 50 mcg PRN Q15MIN PRN IV PAIN GREATER THAN 3/10 Last administered on 09/04/16 10:43; Start 09/04/16 at 10:30; Stop at 10:29; Status DC Ondansetron HCl (Zofran) 4 mg 1X ONCE IV Last administered on 09/04/16 10:43 ; Start 09/04/16 at 10:30; Stop 09/04/16 at 10:32; Status DC Ondansetron HCl (Zofran) 4 mg PRN Q8HRS PRN IV NAUSEA/VOMITING; Start 09/04/16 at 11:30; Stop 09/05/16 at 11:29; Status DC Fentanyl Citrate (Fentanyl 2ml Vial) 50 mcg PRN Q2HR PRN IV PAIN Last administered on 09/04/16 16:00; Start 09/04/16 at 11:30; Stop 09/05/16 at 11:29 ; Status DC Sodium Chloride 1,000 ml @ 100 mls/hr Q10H IV Last administered on 09/05/16 00:43; Start 09/04/16 at 12:00; Stop 09/05/16 at 12:05; Status DC Acetaminophen (Tylenol) 650 mg PRN Q4HRS PRN PO FEVER; Start 09/04/16 at 11:30 ; Stop 09/05/16 at 11:29; Status DC Bupivacaine HCl/ Epinephrine Bitart (Marcaine-Epi 0.25%-[id number]) 50 ml STK-MED ONCE .ROUTE ; Start 09/04/16 at 14:14; Stop 09/04/16 at 14:15; Status DC Acetaminophen (Tylenol) 500 mg DAILY PO Last administered on 09/07/16 09:14; Start 09/05/16 at 09:00 Aspirin (Ecotrin) 81 mg DAILYWBKFT PO ; Start 09/04/16 at 16:00; Stop 09/04/16 at 19:26; Status DC Bupropion HCl (Wellbutrin Xl) 150 mg DAILYWBKFT PO Last administered on 07:46; Start 09/04/16 at 16:00 Diltiazem HCl (Cardizem 24hr Cd) 240 mg DAILY PO Last administered on 09:16; Start 09/04/16 at 16:00 Guaifenesin (Mucinex) 1,200 mg BID PO Last administered on 09/07/16 09:15; Start 09/04/16 at 21:00 Lisinopril (Prinivil) 10 mg DAILY PO Last administered on 09/07/16 09:16; Start 09/04/16 at 16:00 Metoprolol Tartrate (Lopressor) 50 mg BID PO Last administered on 09/07/16 09: 19; Start 09/04/16 at 21:00 Pantoprazole Sodium (Protonix) 40 mg PRN DAILY PRN PO HEARTBURN / GAS; Start at 16:00 Prednisone (Prednisone) 10 mg DAILY PO Last administered on 09/07/16 09:15; Start 09/04/16 at 16:00 Ondansetron HCl (Zofran) 4 mg PRN Q6HRS PRN IV NAUSEA/VOMITING; Start 09/04/16 at 16:30; Stop 09/05/16 at 16:29; Status DC Fentanyl Citrate (Fentanyl 2ml Vial) 25 mcg PRN Q5MIN PRN IV MILD PAIN Last administered on 09/04/16 19:49; Start 09/04/16 at 16:30; Stop 09/05/16 at 16:29 ; Status DC Fentanyl Citrate (Fentanyl 2ml Vial) 50 mcg PRN Q5MIN PRN IV MODERATE PAIN Last administered on 09/04/16t 20:33; Start 09/04/16 at 16:30; Stop 09/05/16 at 16:29; Status DC Morphine Sulfate 1 mg PRN Q10MIN PRN IV SEVERE PAIN; Start 09/04/16 at 16:30; Stop 09/05/16 at 16:29; Status DC Ringer's Solution 1,000 ml @ 30 mls/hr Q24H IV ; Start 09/04/16 at 16:25; Stop 09/05/16 at 04:24; Status DC Lidocaine HCl 2 ml PRN 1X PRN ID PRIOR TO IV START; Start 09/04/16 at 16:30; Stop 09/05/16 at 16:29; Status DC Hydromorphone HCl (Dilaudid) 0.5 mg PRN Q10MIN PRN IV SEV PAIN, Second choice; Start 09/04/16 at 16:30; Stop 09/05/16 at 16:29; Status DC Prochlorperazine Edisylate (Compazine) 5 mg PACU PRN PRN IV NAUSEA, MRX1; Start 09/04/16 at 16:30; Stop 09/05/16 at 16:29; Status DC Dexamethasone Sodium Phosphate (Decadron) 20 mg STK-MED ONCE .ROUTE ; Start at 17:02; Stop 09/04/16 at 17:03; Status DC Lidocaine HCl (Lidocaine Pf 2% Vial) 5 ml STK-MED ONCE .ROUTE ; Start 09/04/16 at 17:02; Stop 09/04/16 at 17:03; Status DC Ondansetron HCl (Zofran) 4 mg STK-MED ONCE .ROUTE ; Start 09/04/16 at 17:02; Stop 09/04/16 at 17:03; Status DC Propofol 20 ml @ As Directed STK-MED ONCE IV ; Start 09/04/16 at 17:02; Stop at 17:03; Status DC Desflurane (Suprane) 60 ml STK-MED ONCE IH ; Start 09/04/16 at 17:02; Stop 09/04 at 17:03; Status DC Fentanyl Citrate (Fentanyl 2ml Vial) 100 mcg STK-MED ONCE .ROUTE ; Start at 17:02; Stop 09/04/16 at 17:03; Status DC Ropivacaine 53.3 ml/Epinephrine HCl 0.6 mg/ Morphine Sulfate 5 mg/Sodium Chloride 100 ml @ 100 mls/hr 1X PERIOP ONCE INT ART Last administered on 09/04 18:36; Start 09/04/16 at 17:30; Stop 09/04/16 at 18:29; Status DC Hydrocortisone Sodium Succinate (Solu-CORTEF) 100 mg STK-MED ONCE .ROUTE ; Start 09/04/16 at 17:34; Stop 09/04/16 at 17:35; Status DC Cefazolin Sodium/ Dextrose 50 ml @ As Directed STK-MED ONCE IV ; Start 09/04/16 at 17:54; Stop 09/04/16 at 17:55; Status DC Ephedrine Sulfate 50 mg STK-MED ONCE IV ; Start 09/04/16 at 18:15; Stop at 18:16; Status DC Oxycodone HCl (Roxicodone) 5 mg PRN Q3HRS PRN PO PAIN Last administered on 09/07 07:45; Start 09/04/16 at 19:30 Morphine Sulfate 2 mg PRN Q1HR PRN IV PAIN Last administered on 09/05/16 21:40 ; Start 09/04/16 at 19:30 Fentanyl Citrate (Fentanyl 2ml Vial) 25 mcg PRN Q1HR PRN IV PAIN; Start at 19:30 Senna/Docusate Sodium (Senna Plus) 1 tab DAILY PO Last administered on 09:15; Start 09/05/16 at 09:00 Polyethylene Glycol (miraLAX PACKET) 17 gm PRN DAILY PRN PO CONSTIPATION; Start 09/04/16 at 19:30 Vitamin D (Vitamin D3) 1,000 unit DAILY PO Last administered on 09/05/16 09:08 ; Start 09/05/16 at 09:00; Stop 09/05/16 at 12:47; Status DC Ondansetron HCl (Zofran) 4 mg PRN Q4HRS PRN IV NAUSEA/VOMITING; Start 09/04/16 at 19:30 Aspirin (Danielle Aspirin) 325 mg BID PO Last administered on 09/07/16 09:15; Start 09/04/16 at 21:00 Magnesium Hydroxide (Milk Of Magnesia) 2,400 mg 1X PRN PRN PO CONSTIPATION; Start 09/05/16 at 06:00; Stop 09/06/16 at 05:59; Status DC Bisacodyl (Dulcolax Supp) 10 mg 1X PRN PRN DC CONSTIPATION; Start 09/05/16 at 16:00; Stop 09/06/16 at 15:59; Status DC Acetaminophen/ Hydrocodone Bitart (Lortab 7.5/325) 1 tab PRN Q4HRS PRN PO PAIN Last administered on 09/05/16 17:50; Start 09/04/16 at 19:30 Morphine Sulfate 4 mg PRN Q2HR PRN IV PAIN Last administered on 09/05/16 00:43 ; Start 09/04/16 at 19:30 Acetaminophen/ Hydrocodone Bitart (Lortab 7.5/325) 2 tab PRN Q4HRS PRN PO PAIN ; Start 09/04/16 at 19:30 Dextrose (Dextrose 50%-Water Syringe) 12.5 gm PRN Q15MIN PRN IV SEE COMMENTS; Start 09/04/16 at 19:30 Cefazolin Sodium 1 gm/Sodium Chloride 50 ml @ 100 mls/hr Q6H IV Last administered on 09/05/16 12:17; Start 09/05/16 at 00:30; Stop 09/05/16 at 12:59 ; Status DC Cefazolin Sodium/ Dextrose 50 ml @ 100 mls/hr 1X PREOP IV Last administered on 09/04/16 18:20; Start 09/04/16 at 18:00; Stop 09/04/16 at 19:48; Status DC Ergocalciferol (Vitamin D2) 50,000 unit Sa PO Last administered on 09/05/16 15 :58; Start 09/05/16 at 13:00 Ergocalciferol (Vitamin D2) 50,000 unit WEEKLY PO ; Start 09/12/16 at 09:00; Stop 09/12/16 at 09:00; Status DC Vitamin D (Vitamin D3) 5,000 unit DAILY PO ; Start 09/06/16 at 09:00; Status Cancel Vitamin D (Vitamin D3) 5,000 unit DAILY PO Last administered on 09/07/16 09:15 ; Start 09/05/16 at 13:00 Enoxaparin Sodium (Lovenox 30mg Syringe) 30 mg Q24H SQ Last administered on 11:45; Start 09/06/16 at 11:00 Bisacodyl (Dulcolax Tab) 10 mg DAILY PO Last administered on 09/07/16 09:15; Start 09/07/16 at 09:00 Sodium Chloride 1,000 ml @ 100 mls/hr Q10H IV Last administered on 09/07/16 09:21; Start 09/06/16 at 22:30 Active Scripts Active Prednisone 10 Mg Tablet 10 Mg PO DIRECTED Levaquin (Levofloxacin) 250 Mg Tablet 250 Mg PO DAILY06 Lisinopril 10 Mg Tablet 10 Mg PO DAILY Mucinex (Guaifenesin) 600 Mg Tablet.er 1,200 Mg PO BID Diltiazem 24HR Cd (Diltiazem Hcl) 240 Mg Cap.er.24h 240 Mg PO DAILY Aspirin Ec (Aspirin) 81 Mg Tablet. 81 Mg PO DAILYWBKFT Metoprolol Tartrate 50 Mg Tablet 1 Tab PO BID Reported Lisinopril 20 Mg Tablet 1 Tab PO DAILY Tylenol Extra Strength (Acetaminophen) 500 Mg Tablet 500 Mg PO DAILY Hydrochlorothiazide Capsule (Hydrochlorothiazide) 12.5 Mg Capsule 1 Cap PO DAILY FOR TREATMENT OF HYPERTENSION LAST DOSE GIVEN: DATE:06/03/15 TIME: 0900 AM NEXT DOSE DUE: DATE: 06/04/15 TIME: 0900 AM Pantoprazole Sodium 40 Mg Tablet.dr 40 Mg PO DAILYAC PRN Bupropion Xl (Bupropion Hcl) 150 Mg Tab.er.24h 1 Tab PO DAILYWBKFT fOR TREATMENT OF DEPRESSION LAST DOSE GIVEN: DATE: 06/03/15 TIME: 0900 AM NEXT DOSE DUE: DATE: 06/04/15 TIME: 0900 AM Vitals/I & O Vital Sign - Last 24 Hours 09/06/16 09/06/16 09/06/16 09/06/16 11:10 15:08 19:54 21:00 Temp 98.3 97.7 98.4 98.3 97.7 98.4 Pulse 55 16 58 58 Resp 16 16 16 B/P (MAP) 128/53 (78) 129/46 (73) 87/39 (55) 87/39 Pulse Ox 98 96 92 O2 Delivery Nasal Cannula Nasal Cannula Room Air O2 Flow Rate 2.0 2.0 09/06/16 09/06/16 09/07/16 09/07/16 21:33 23:11 00:36 01:36 Temp 99.0 99.0 Pulse 71 Resp 16 18 16 16 B/P (MAP) 108/43 (64) Pulse Ox 92 91 91 91 O2 Delivery Room Air Room Air Room Air Room Air 09/07/16 09/07/16 09/07/16 09/07/16 03:08 07:00 09:16 09:16 Temp 98.9 98.3 98.9 98.3 Pulse 62 69 69 69 Resp 18 18 B/P (MAP) 114/54 (74) 120/72 (88) 120/72 120/72 Pulse Ox 91 92 O2 Delivery Room Air Room Air 09/07/16 09:19 Pulse 69 B/P (MAP) 120/72 Intake and Output 09/06/16 09/06/16 09/07/16 15:00 23:00 07:00 Intake Total 720 ml 240 ml Output Total 700 ml 300 ml Balance 20 ml -60 ml MADHURI GILLESPIE MD September 07, 2016 10:27
[2016-09-07 11:00] VITALS: BP 113/64
--- NOTE | 2016-09-07 11:43 | PDOC ---
PROGRESS NOTES Subjective Subjective feels ok Objective Objective Vital Signs Date Time Temp Pulse Resp B/P (MAP) Pulse Ox O2 Delivery O2 Flow Rate FiO2 09/07/16 09:19 69 120/72 09/07/16 07:00 98.3 18 92 Room Air 98.3 09/06/16 15:08 2.0 Intake and Output 09/07/16 06:59 Intake Total 960 ml Output Total 1000 ml Balance -40 ml Intake Oral 960 ml Output Urine Total 1000 ml Physical Exam Abdomen: Soft Heart: Regular rate Extremities: No clubbing, No cyanosis, Normal pulses, Other (BLE trace pedal edema) General: Alert, Oriented X3, Cooperative, No acute distress HEENT: Atraumatic, EOMI, Other (Deaf in her left ear. Hears well from her right ear.) Lungs: Normal air movement MUSCULOSKELETAL: Other (No abrasion or ecchymosis noted over left hip. Left lower extremity shortened and rotated. Attempted motion of left hip is painful. Calf soft and nontender with negative Ciro's. Good df/pf. Peripheral pulses intact. SILT.) Neuro: Normal speech, Sensation intact Psych/Mental Status: Mental status NL, Mood NL Skin: No rashes, No breakdown, No significant lesion, Other (Abrasion and ecchymosis to left elbow) COMMENT kaylie present Diagnosis Problem List Problems Medical Problems: (1) Intertrochanteric fracture of left hip Status: Acute (2) Renal insufficiency Status: Acute Assessment Assessment Problems Medical Problems: (1) Intertrochanteric fracture of left hip Status: Acute (2) Renal insufficiency Status: Acute Problems: Plan Plan of Care Problems Medical Problems: (1) Intertrochanteric fracture of left hip Status: Acute (2) Renal insufficiency Status: Acute FINAL IMPRESSION: 1. Mechanical fall at home in the driveway. 2. Left hip fracture, had an intramedullary nailing done last night. 3. Chronic obstructive pulmonary disease. 4. Paroxysmal atrial fibrillation ,not a candidate for anticoagulation. 5. Hyperthyroidism. 6. Osteoporosis. PLAN: POD #3. lt hip nailing hypotension last night given iv fluids and bolus. d/c kaylie today. snu tomorrow. rehab consult. At this time, admit to hospital. The patient had surgery done. Postop care, PT, OT, DVT prevention and vitamin D supplementation and smoking counseling was done. Comment Review of Relevant I have reviewed the following items royce (where applicable) has been applied. Labs Laboratory Tests Test 09/07/16 07:13 White Blood Count 11.3 x10^3/uL (4.0-11.0) Red Blood Count 2.43 x10^6/uL (3.50-5.40) Hemoglobin 7.3 g/dL (12.0-15.5) Hematocrit 22.3 % (36.0-47.0) Mean Corpuscular Volume 92 fL (79-100) Mean Corpuscular Hemoglobin 30 pg (25-35) Mean Corpuscular Hemoglobin Concent 33 g/dL (31-37) Red Cell Distribution Width 14.3 % (11.5-14.5) Platelet Count 205 x10^3/uL (140-400) Neutrophils (%) (Auto) 74 % (31-73) Lymphocytes (%) (Auto) 14 % (24-48) Monocytes (%) (Auto) 9 % (0-9) Eosinophils (%) (Auto) 2 % (0-3) Basophils (%) (Auto) 1 % (0-3) Neutrophils # (Auto) 8.3 x10^3uL (1.8-7.7) Lymphocytes # (Auto) 1.6 x10^3/uL (1.0-4.8) Monocytes # (Auto) 1.0 x10^3/uL (0.0-1.1) Eosinophils # (Auto) 0.3 x10^3/uL (0.0-0.7) Basophils # (Auto) 0.1 x10^3/uL (0.0-0.2) Medications Current Medications Bisacodyl (Dulcolax Tab) 10 mg DAILY PO Last administered on 09/07/16 09:15; Start 09/07/16 at 09:00 Ergocalciferol (Vitamin D2) 50,000 unit WEEKLY PO ; Start 09/12/16 at 09:00; Stop 09/12/16 at 09:00; Status DC Sodium Chloride 1,000 ml @ 100 mls/hr Q10H IV Last administered on 09/07/16 09:21; Start 09/06/16 at 22:30 Vitals/I & O Vital Sign - Last 24 Hours 5/2809/06/16 09/06/16 09/06/16 15:08 19:54 21:00 21:33 Temp 97.7 98.4 97.7 98.4 Pulse 16 58 58 Resp 16 16 16 B/P (MAP) 129/46 (73) 87/39 (55) 87/39 Pulse Ox 96 92 92 O2 Delivery Nasal Cannula Room Air Room Air O2 Flow Rate 2.0 09/06/16 09/07/16 09/07/16 09/07/16 23:11 00:36 01:36 03:08 Temp 99.0 98.9 99.0 98.9 Pulse 71 62 Resp 18 16 16 18 B/P (MAP) 108/43 (64) 114/54 (74) Pulse Ox 91 91 91 91 O2 Delivery Room Air Room Air Room Air Room Air 09/07/16 09/07/16 09/07/16 09/07/16 07:00 09:16 09:16 09:19 Temp 98.3 98.3 Pulse 69 69 69 69 Resp 18 B/P (MAP) 120/72 (88) 120/72 120/72 120/72 Pulse Ox 92 O2 Delivery Room Air Intake and Output 09/06/16 09/06/16 09/07/16 14:59 22:59 06:59 Intake Total 720 ml 240 ml Output Total 700 ml 300 ml Balance 20 ml -60 ml FAHAD OCHOA MD September 07, 2016 11:43
--- NOTE | 2016-09-07 12:10 | PDOC ---
PROGRESS NOTES Subjective Subjective Doing better today. Pain controlled. Objective Vital Signs Vital Signs Date Time Temp Pulse Resp B/P (MAP) Pulse Ox O2 Delivery O2 Flow Rate FiO2 09/07/16 11:00 97.9 66 18 113/64 (80) 93 Room Air 97.9 09/06/16 15:08 2.0 Physical Exam Sitting up in recliner eating lunch with daughter at bedside. Aquacel dressing dry and intact. Calf soft NT with neg Ciro's. Good dorsiflexion and plantarflexion. NVI. Labs Laboratory Tests Test 09/05/16 19:30 09/06/16 03:30 09/07/16 07:13 Hemoglobin 7.8 g/dL (12.0-15.5) 7.3 g/dL (12.0-15.5) Hematocrit 22.2 % (36.0-47.0) 22.3 % (36.0-47.0) Mean Corpuscular Hemoglobin Concent 35 g/dL (31-37) 33 g/dL (31-37) Sodium Level 140 mmol/L (136-145) Potassium Level 4.2 mmol/L (3.5-5.1) Chloride Level 106 mmol/L (98-107) Carbon Dioxide Level 22 mmol/L (21-32) Anion Gap 12 (6-14) Blood Urea Nitrogen 24 mg/dL (7-20) Creatinine 1.3 mg/dL (0.6-1.0) Estimated GFR (Cockcroft-Gault) 38.8 Glucose Level 122 mg/dL (70-99) Calcium Level 9.2 mg/dL (8.5-10.1) Thyroid Stimulating Hormone (TSH) 0.801 uIU/mL (0.358-3.74) White Blood Count 11.3 x10^3/uL (4.0-11.0) Red Blood Count 2.43 x10^6/uL (3.50-5.40) Mean Corpuscular Volume 92 fL (79-100) Mean Corpuscular Hemoglobin 30 pg (25-35) Red Cell Distribution Width 14.3 % (11.5-14.5) Platelet Count 205 x10^3/uL (140-400) Neutrophils (%) (Auto) 74 % (31-73) Lymphocytes (%) (Auto) 14 % (24-48) Monocytes (%) (Auto) 9 % (0-9) Eosinophils (%) (Auto) 2 % (0-3) Basophils (%) (Auto) 1 % (0-3) Neutrophils # (Auto) 8.3 x10^3uL (1.8-7.7) Lymphocytes # (Auto) 1.6 x10^3/uL (1.0-4.8) Monocytes # (Auto) 1.0 x10^3/uL (0.0-1.1) Eosinophils # (Auto) 0.3 x10^3/uL (0.0-0.7) Basophils # (Auto) 0.1 x10^3/uL (0.0-0.2) Laboratory Tests Test 09/07/16 07:13 White Blood Count 11.3 x10^3/uL (4.0-11.0) Red Blood Count 2.43 x10^6/uL (3.50-5.40) Hemoglobin 7.3 g/dL (12.0-15.5) Hematocrit 22.3 % (36.0-47.0) Mean Corpuscular Volume 92 fL (79-100) Mean Corpuscular Hemoglobin 30 pg (25-35) Mean Corpuscular Hemoglobin Concent 33 g/dL (31-37) Red Cell Distribution Width 14.3 % (11.5-14.5) Platelet Count 205 x10^3/uL (140-400) Neutrophils (%) (Auto) 74 % (31-73) Lymphocytes (%) (Auto) 14 % (24-48) Monocytes (%) (Auto) 9 % (0-9) Eosinophils (%) (Auto) 2 % (0-3) Basophils (%) (Auto) 1 % (0-3) Neutrophils # (Auto) 8.3 x10^3uL (1.8-7.7) Lymphocytes # (Auto) 1.6 x10^3/uL (1.0-4.8) Monocytes # (Auto) 1.0 x10^3/uL (0.0-1.1) Eosinophils # (Auto) 0.3 x10^3/uL (0.0-0.7) Basophils # (Auto) 0.1 x10^3/uL (0.0-0.2) Assessment Assessment POD #3 left hip IM nail Problems: Plan Plan of Care Continue POC including DVT ppx and therapy. Discharge planning to rehab tomorrow. WBAT with walker. Discontinue Yulissa. KARL RAMOS September 07, 2016 12:10
[2016-09-07] MEDS: ENOXAPARIN 30 MG/0.3 ML SYRINGE. SQ SCH (12:54)
[2016-09-07 15:00] VITALS: BP 105/52
[2016-09-07] MEDS: MORPHINE SULFATE 2 MG/ML DISP.SYRIN. IV PRN (15:37)
[2016-09-07 19:00] VITALS: BP 138/60
[2016-09-07 23:00] VITALS: BP 145/81
[2016-09-08 03:00] VITALS: BP 162/52
[2016-09-08 07:00] VITALS: BP 169/73
[2016-09-08] MEDS: SENNOSIDES/DOCUSATE 8.6/50MG TABLET. PO SCH (08:52)
[2016-09-08] MEDS: LISINOPRIL 10 MG TABLET PO SCH (08:52)
[2016-09-08] MEDS: predniSONE 10 MG TABLET PO SCH (08:52)
[2016-09-08] MEDS: CHOLECALCIFEROL (VITAMIN D3) 5,000 UNIT CAPSULE PO SCH (08:52)
[2016-09-08] MEDS: BISACODYL 5 MG TABLET.DR. PO SCH (08:52)
[2016-09-08] MEDS: ASPIRIN 325 MG TABLET PO SCH (08:52)
[2016-09-08] MEDS: buPROPion XL 150 MG TAB.ER.24H. PO SCH (08:52)
[2016-09-08] MEDS: METOPROLOL TART IMMED RELEASE 50 MG TABLET. PO SCH (08:53)
[2016-09-08] MEDS: ACETAMINOPHEN 500 MG TABLET PO SCH (08:53)
[2016-09-08] MEDS: oxyCODONE IR 5 MG TABLET PO PRN ×2 (08:59→16:12)
--- NOTE | 2016-09-08 09:56 | PDOC ---
PROGRESS NOTES Subjective Subjective She admits continued pain left hip. Objective Objective Vital Signs Date Time Temp Pulse Resp B/P (MAP) Pulse Ox O2 Delivery O2 Flow Rate FiO2 09/08/16 08:59 Room Air 09/08/16 08:53 65 169/73 09/08/16 07:00 98.6 20 98 98.6 09/08/16 00:20 2.0 Intake and Output 09/08/16 07:00 Intake Total 600 ml Output Total 550 ml Balance 50 ml Intake Oral 600 ml Output Urine Total 550 ml # Voids 5 # Bowel Movements 2 Physical Exam Physical Exam She is sitting up in bedside chair and does not seems to be in any distress. She is using oxygen by nasal canula and still protecting left hip and indwelling Duenas was discontinued yesterday and she is voiding.She is participating with therapy. Assessment Assessment Problems Medical Problems: (1) Intertrochanteric fracture of left hip Status: Acute (2) Renal insufficiency Status: Acute Plan Plan of Care To SNF when medically stable. Comment Review of Relevant I have reviewed the following items royce (where applicable) has been applied. Labs Laboratory Tests Test 09/07/16 07:13 White Blood Count 11.3 x10^3/uL (4.0-11.0) Red Blood Count 2.43 x10^6/uL (3.50-5.40) Hemoglobin 7.3 g/dL (12.0-15.5) Hematocrit 22.3 % (36.0-47.0) Mean Corpuscular Volume 92 fL (79-100) Mean Corpuscular Hemoglobin 30 pg (25-35) Mean Corpuscular Hemoglobin Concent 33 g/dL (31-37) Red Cell Distribution Width 14.3 % (11.5-14.5) Platelet Count 205 x10^3/uL (140-400) Neutrophils (%) (Auto) 74 % (31-73) Lymphocytes (%) (Auto) 14 % (24-48) Monocytes (%) (Auto) 9 % (0-9) Eosinophils (%) (Auto) 2 % (0-3) Basophils (%) (Auto) 1 % (0-3) Neutrophils # (Auto) 8.3 x10^3uL (1.8-7.7) Lymphocytes # (Auto) 1.6 x10^3/uL (1.0-4.8) Monocytes # (Auto) 1.0 x10^3/uL (0.0-1.1) Eosinophils # (Auto) 0.3 x10^3/uL (0.0-0.7) Basophils # (Auto) 0.1 x10^3/uL (0.0-0.2) Medications Current Medications Sodium Chloride 1,000 ml @ 100 mls/hr Q10H IV Last administered on 09/04/16 10:44; Start 09/04/16 at 10:25; Stop 09/04/16 at 20:24; Status DC Fentanyl Citrate (Fentanyl 2ml Vial) 50 mcg PRN Q15MIN PRN IV PAIN GREATER THAN 3/10 Last administered on 09/04/16 10:43; Start 09/04/16 at 10:30; Stop at 10:29; Status DC Ondansetron HCl (Zofran) 4 mg 1X ONCE IV Last administered on 09/04/16 10:43 ; Start 09/04/16 at 10:30; Stop 09/04/16 at 10:32; Status DC Ondansetron HCl (Zofran) 4 mg PRN Q8HRS PRN IV NAUSEA/VOMITING; Start 09/04/16 at 11:30; Stop 09/05/16 at 11:29; Status DC Fentanyl Citrate (Fentanyl 2ml Vial) 50 mcg PRN Q2HR PRN IV PAIN Last administered on 09/04/16 16:00; Start 09/04/16 at 11:30; Stop 09/05/16 at 11:29 ; Status DC Sodium Chloride 1,000 ml @ 100 mls/hr Q10H IV Last administered on 09/05/16 00:43; Start 09/04/16 at 12:00; Stop 09/05/16 at 12:05; Status DC Acetaminophen (Tylenol) 650 mg PRN Q4HRS PRN PO FEVER; Start 09/04/16 at 11:30 ; Stop 09/05/16 at 11:29; Status DC Bupivacaine HCl/ Epinephrine Bitart (Marcaine-Epi 0.25%-[id number]) 50 ml STK-MED ONCE .ROUTE ; Start 09/04/16 at 14:14; Stop 09/04/16 at 14:15; Status DC Acetaminophen (Tylenol) 500 mg DAILY PO Last administered on 09/08/16 08:53; Start 09/05/16 at 09:00 Aspirin (Ecotrin) 81 mg DAILYWBKFT PO ; Start 09/04/16 at 16:00; Stop 09/04/16 at 19:26; Status DC Bupropion HCl (Wellbutrin Xl) 150 mg DAILYWBKFT PO Last administered on 08:52; Start 09/04/16 at 16:00 Diltiazem HCl (Cardizem 24hr Cd) 240 mg DAILY PO Last administered on 08:53; Start 09/04/16 at 16:00 Guaifenesin (Mucinex) 1,200 mg BID PO Last administered on 09/08/16 08:53; Start 09/04/16 at 21:00 Lisinopril (Prinivil) 10 mg DAILY PO Last administered on 09/08/16 08:52; Start 09/04/16 at 16:00 Metoprolol Tartrate (Lopressor) 50 mg BID PO Last administered on 09/08/16 08: 53; Start 09/04/16 at 21:00 Pantoprazole Sodium (Protonix) 40 mg PRN DAILY PRN PO HEARTBURN / GAS; Start at 16:00 Prednisone (Prednisone) 10 mg DAILY PO Last administered on 09/08/16 08:52; Start 09/04/16 at 16:00 Ondansetron HCl (Zofran) 4 mg PRN Q6HRS PRN IV NAUSEA/VOMITING; Start 09/04/16 at 16:30; Stop 09/05/16 at 16:29; Status DC Fentanyl Citrate (Fentanyl 2ml Vial) 25 mcg PRN Q5MIN PRN IV MILD PAIN Last administered on 09/04/16 19:49; Start 09/04/16 at 16:30; Stop 09/05/16 at 16:29 ; Status DC Fentanyl Citrate (Fentanyl 2ml Vial) 50 mcg PRN Q5MIN PRN IV MODERATE PAIN Last administered on 09/04/16 20:33; Start 09/04/16 at 16:30; Stop 09/05/16 at 16:29; Status DC Morphine Sulfate 1 mg PRN Q10MIN PRN IV SEVERE PAIN; Start 09/04/16 at 16:30; Stop 09/05/16 at 16:29; Status DC Ringer's Solution 1,000 ml @ 30 mls/hr Q24H IV ; Start 09/04/16 at 16:25; Stop 09/05/16 at 04:24; Status DC Lidocaine HCl 2 ml PRN 1X PRN ID PRIOR TO IV START; Start 09/04/16 at 16:30; Stop 09/05/16 at 16:29; Status DC Hydromorphone HCl (Dilaudid) 0.5 mg PRN Q10MIN PRN IV SEV PAIN, Second choice; Start 09/04/16 at 16:30; Stop 09/05/16 at 16:29; Status DC Prochlorperazine Edisylate (Compazine) 5 mg PACU PRN PRN IV NAUSEA, MRX1; Start 09/04/16 at 16:30; Stop 09/05/16 at 16:29; Status DC Dexamethasone Sodium Phosphate (Decadron) 20 mg STK-MED ONCE .ROUTE ; Start at 17:02; Stop 09/04/16 at 17:03; Status DC Lidocaine HCl (Lidocaine Pf 2% Vial) 5 ml STK-MED ONCE .ROUTE ; Start 09/04/16 at 17:02; Stop 09/04/16 at 17:03; Status DC Ondansetron HCl (Zofran) 4 mg STK-MED ONCE .ROUTE ; Start 09/04/16 at 17:02; Stop 09/04/16 at 17:03; Status DC Propofol 20 ml @ As Directed STK-MED ONCE IV ; Start 09/04/16 at 17:02; Stop at 17:03; Status DC Desflurane (Suprane) 60 ml STK-MED ONCE IH ; Start 09/04/16 at 17:02; Stop 09/04 at 17:03; Status DC Fentanyl Citrate (Fentanyl 2ml Vial) 100 mcg STK-MED ONCE .ROUTE ; Start at 17:02; Stop 09/04/16 at 17:03; Status DC Ropivacaine 53.3 ml/Epinephrine HCl 0.6 mg/ Morphine Sulfate 5 mg/Sodium Chloride 100 ml @ 100 mls/hr 1X PERIOP ONCE INT ART Last administered on 09/04t 18:36; Start 09/04/16 at 17:30; Stop 09/04/16 at 18:29; Status DC Hydrocortisone Sodium Succinate (Solu-CORTEF) 100 mg STK-MED ONCE .ROUTE ; Start 09/04/16 at 17:34; Stop 09/04/16 at 17:35; Status DC Cefazolin Sodium/ Dextrose 50 ml @ As Directed STK-MED ONCE IV ; Start 09/04/16 at 17:54; Stop 09/04/16 at 17:55; Status DC Ephedrine Sulfate 50 mg STK-MED ONCE IV ; Start 09/04/16 at 18:15; Stop at 18:16; Status DC Oxycodone HCl (Roxicodone) 5 mg PRN Q3HRS PRN PO PAIN Last administered on 09/08 08:59; Start 09/04/16 at 19:30 Morphine Sulfate 2 mg PRN Q1HR PRN IV PAIN Last administered on 09/07/16 15:37 ; Start 09/04/16 at 19:30 Fentanyl Citrate (Fentanyl 2ml Vial) 25 mcg PRN Q1HR PRN IV PAIN; Start at 19:30 Senna/Docusate Sodium (Senna Plus) 1 tab DAILY PO Last administered on 08:52; Start 09/05/16 at 09:00 Polyethylene Glycol (miraLAX PACKET) 17 gm PRN DAILY PRN PO CONSTIPATION; Start 09/04/16 at 19:30 Vitamin D (Vitamin D3) 1,000 unit DAILY PO Last administered on 09/05/16 09:08 ; Start 09/05/16 at 09:00; Stop 09/05/16 at 12:47; Status DC Ondansetron HCl (Zofran) 4 mg PRN Q4HRS PRN IV NAUSEA/VOMITING; Start 09/04/16 at 19:30 Aspirin (Danielle Aspirin) 325 mg BID PO Last administered on 09/08/16 08:52; Start 09/04/16 at 21:00 Magnesium Hydroxide (Milk Of Magnesia) 2,400 mg 1X PRN PRN PO CONSTIPATION; Start 09/05/16 at 06:00; Stop 09/06/16 at 05:59; Status DC Bisacodyl (Dulcolax Supp) 10 mg 1X PRN PRN CA CONSTIPATION; Start 09/05/16 at 16:00; Stop 09/06/16 at 15:59; Status DC Acetaminophen/ Hydrocodone Bitart (Lortab 7.5/325) 1 tab PRN Q4HRS PRN PO PAIN Last administered on 09/05/16 17:50; Start 09/04/16 at 19:30 Morphine Sulfate 4 mg PRN Q2HR PRN IV PAIN Last administered on 09/05/16 00:43 ; Start 09/04/16 at 19:30 Acetaminophen/ Hydrocodone Bitart (Lortab 7.5/325) 2 tab PRN Q4HRS PRN PO PAIN ; Start 09/04/16 at 19:30 Dextrose (Dextrose 50%-Water Syringe) 12.5 gm PRN Q15MIN PRN IV SEE COMMENTS; Start 09/04/16 at 19:30 Cefazolin Sodium 1 gm/Sodium Chloride 50 ml @ 100 mls/hr Q6H IV Last administered on 09/05/16 12:17; Start 09/05/16 at 00:30; Stop 09/05/16 at 12:59 ; Status DC Cefazolin Sodium/ Dextrose 50 ml @ 100 mls/hr 1X PREOP IV Last administered on 09/04/16 18:20; Start 09/04/16 at 18:00; Stop 09/04/16 at 19:48; Status DC Ergocalciferol (Vitamin D2) 50,000 unit Sa PO Last administered on 09/05/16 15 :58; Start 09/05/16 at 13:00 Ergocalciferol (Vitamin D2) 50,000 unit WEEKLY PO ; Start 09/12/16 at 09:00; Stop 09/12/16 at 09:00; Status DC Vitamin D (Vitamin D3) 5,000 unit DAILY PO ; Start 09/06/16 at 09:00; Status Cancel Vitamin D (Vitamin D3) 5,000 unit DAILY PO Last administered on 09/08/16 08:52 ; Start 09/05/16 at 13:00 Enoxaparin Sodium (Lovenox 30mg Syringe) 30 mg Q24H SQ Last administered on 12:54; Start 09/06/16 at 11:00 Bisacodyl (Dulcolax Tab) 10 mg DAILY PO Last administered on 09/08/16 08:52; Start 09/07/16 at 09:00 Sodium Chloride 1,000 ml @ 100 mls/hr Q10H IV Last administered on 09/07/16 09:21; Start 09/06/16 at 22:30; Stop 09/07/16 at 11:43; Status DC Active Scripts Active Prednisone 10 Mg Tablet 10 Mg PO DIRECTED Levaquin (Levofloxacin) 250 Mg Tablet 250 Mg PO DAILY06 Lisinopril 10 Mg Tablet 10 Mg PO DAILY Mucinex (Guaifenesin) 600 Mg Tablet.er 1,200 Mg PO BID Diltiazem 24HR Cd (Diltiazem Hcl) 240 Mg Cap.er.24h 240 Mg PO DAILY Aspirin Ec (Aspirin) 81 Mg Tablet. 81 Mg PO DAILYWBKFT Metoprolol Tartrate 50 Mg Tablet 1 Tab PO BID Reported Lisinopril 20 Mg Tablet 1 Tab PO DAILY Tylenol Extra Strength (Acetaminophen) 500 Mg Tablet 500 Mg PO DAILY Hydrochlorothiazide Capsule (Hydrochlorothiazide) 12.5 Mg Capsule 1 Cap PO DAILY FOR TREATMENT OF HYPERTENSION LAST DOSE GIVEN: DATE:06/03/15 TIME: 0900 AM NEXT DOSE DUE: DATE: 06/04/15 TIME: 0900 AM Pantoprazole Sodium 40 Mg Tablet. 40 Mg PO DAILYAC PRN Bupropion Xl (Bupropion Hcl) 150 Mg Tab.er.24h 1 Tab PO DAILYWBKFT fOR TREATMENT OF DEPRESSION LAST DOSE GIVEN: DATE: 06/03/15 TIME: 0900 AM NEXT DOSE DUE: DATE: 06/04/15 TIME: 0900 AM Vitals/I & O Vital Sign - Last 24 Hours 09/07/16 09/07/16 09/07/16 09/07/16 11:00 15:00 19:00 19:55 Temp 97.9 97.4 98.7 97.9 97.4 98.7 Pulse 66 58 80 Resp 18 18 20 B/P (MAP) 113/64 (80) 105/52 (69) 138/60 (86) Pulse Ox 93 96 98 O2 Delivery Room Air Room Air Room Air Nasal Cannula O2 Flow Rate 2.0 09/07/16 09/07/16 09/07/16 09/08/16 23:00 23:18 23:19 00:20 Temp 98.7 98.7 Pulse 92 Resp 22 16 16 B/P (MAP) 145/81 (102) 145/81 Pulse Ox 96 O2 Delivery Room Air Nasal Cannula Nasal Cannula O2 Flow Rate 2.0 2.0 09/08/16 09/08/16 09/08/16 09/08/16 03:00 07:00 08:52 08:53 Temp 98.6 98.6 98.6 98.6 Pulse 81 65 65 65 Resp 20 20 B/P (MAP) 162/52 (88) 169/73 (105) 169/73 169/73 Pulse Ox 100 98 O2 Delivery Room Air Room Air 09/08/16 09/08/16 08:53 08:59 Pulse 65 B/P (MAP) 169/73 O2 Delivery Room Air Intake and Output 09/07/16 09/07/16 09/08/16 15:00 23:00 07:00 Intake Total 600 ml Output Total 550 ml Balance -550 ml 600 ml MADHURI GILLESPIE MD September 08, 2016 09:56
--- NOTE | 2016-09-08 10:38 | PDOC ---
PROGRESS NOTES Subjective Subjective no new problems Objective Objective Vital Signs Date Time Temp Pulse Resp B/P (MAP) Pulse Ox O2 Delivery O2 Flow Rate FiO2 09/08/16 08:59 Room Air 09/08/16 08:53 65 169/73 09/08/16 08:10 2.0 09/08/16 07:00 98.6 20 98 98.6 Intake and Output 09/08/16 07:00 Intake Total 600 ml Output Total 550 ml Balance 50 ml Intake Oral 600 ml Output Urine Total 550 ml # Voids 5 # Bowel Movements 2 Physical Exam Abdomen: Soft Heart: Regular rate Extremities: No clubbing, No cyanosis, Normal pulses, Other (BLE trace pedal edema) General: Alert, Oriented X3, Cooperative, No acute distress HEENT: Atraumatic, EOMI, Other (Deaf in her left ear. Hears well from her right ear.) Lungs: Normal air movement MUSCULOSKELETAL: Other (No abrasion or ecchymosis noted over left hip. Left lower extremity shortened and rotated. Attempted motion of left hip is painful. Calf soft and nontender with negative Ciro's. Good df/pf. Peripheral pulses intact. SILT.) Neuro: Normal speech, Sensation intact Psych/Mental Status: Mental status NL, Mood NL Skin: No rashes, No breakdown, No significant lesion, Other (Abrasion and ecchymosis to left elbow) COMMENT lott removed Diagnosis Problem List Problems Medical Problems: (1) Intertrochanteric fracture of left hip Status: Acute (2) Renal insufficiency Status: Acute Assessment Assessment Problems Medical Problems: (1) Intertrochanteric fracture of left hip Status: Acute (2) Renal insufficiency Status: Acute FINAL IMPRESSION: 1. Mechanical fall at home in the driveway. 2. Left hip fracture, had an intramedullary nailing done last night. 3. Chronic obstructive pulmonary disease. 4. Paroxysmal atrial fibrillation ,not a candidate for anticoagulation. 5. Hyperthyroidism. 6. Osteoporosis. PLAN: POD #4. lt hip nailing snu for rehab today d/suze lott yesterday rehab consult. Problems: Plan Plan of Care Problems Medical Problems: (1) Intertrochanteric fracture of left hip Status: Acute (2) Renal insufficiency Status: Acute Comment Review of Relevant I have reviewed the following items royce (where applicable) has been applied. Medications Current Medications Ergocalciferol (Vitamin D2) 50,000 unit WEEKLY PO ; Start 09/12/16 at 09:00; Stop 09/12/16 at 09:00; Status DC Vitals/I & O Vital Sign - Last 24 Hours 09/07/16 09/07/16 09/07/16 09/07/16 11:00 15:00 19:00 19:55 Temp 97.9 97.4 98.7 97.9 97.4 98.7 Pulse 66 58 80 Resp 18 18 20 B/P (MAP) 113/64 (80) 105/52 (69) 138/60 (86) Pulse Ox 93 96 98 O2 Delivery Room Air Room Air Room Air Nasal Cannula O2 Flow Rate 2.0 09/07/16 09/07/16 09/07/16 09/08/16 23:00 23:18 23:19 00:20 Temp 98.7 98.7 Pulse 92 Resp 22 16 16 B/P (MAP) 145/81 (102) 145/81 Pulse Ox 96 O2 Delivery Room Air Nasal Cannula Nasal Cannula O2 Flow Rate 2.0 2.0 09/08/16 09/08/16 09/08/16 09/08/16 03:00 07:00 08:10 08:52 Temp 98.6 98.6 98.6 98.6 Pulse 81 65 65 Resp 20 20 B/P (MAP) 162/52 (88) 169/73 (105) 169/73 Pulse Ox 100 98 O2 Delivery Room Air Room Air Nasal Cannula O2 Flow Rate 2.0 09/08/16 09/08/16 09/08/16 08:53 08:53 08:59 Pulse 65 65 B/P (MAP) 169/73 169/73 O2 Delivery Room Air Intake and Output 09/07/16 09/07/16 09/08/16 15:00 23:00 07:00 Intake Total 600 ml Output Total 550 ml Balance -550 ml 600 ml FAHAD OCHOA MD September 08, 2016 10:38
[2016-09-08 11:00] VITALS: BP 108/59
[2016-09-08] MEDS: ENOXAPARIN 30 MG/0.3 ML SYRINGE. SQ SCH (11:00)
[2016-09-08 15:00] VITALS: BP 176/49
[2016-09-08] MEDS ORDERED: HYDR-2762 PO (16:04)
--- NOTE | 2016-09-09 20:21 | PDOC ---
Provider Note Provider Note Discharge summary dictated. #[id number] FAHAD OCHOA MD September 09, 2016 20:21
--- NOTE | 2016-09-10 01:08 | DS ---
DATE OF DISCHARGE: 09/08/2016 REASON FOR ADMISSION TO THE HOSPITAL: Mechanical fall at home, left hip fracture. PROCEDURE DONE: Intramedullary implant nailing. CONSULTATION: Dr. Mayen. HOSPITAL COURSE: The patient is an 85-year-old female with history of COPD. The patient was trying to get a newspaper, fell in the driveway and was brought to the hospital. X-ray shows close left intertrochanteric hip fracture. The patient was taken to surgery, had an intramedullary nailing/implant placed. The patient did well after the surgery, was put on Lovenox for DVT prevention and the patient was seen by Physical Therapy Rehab and transferred to [facility]. FINAL DIAGNOSES: 1. Mechanical fall at driveway. 2. Left intertrochanteric hip fracture, closed. The patient underwent intramedullary implant/nailing. 3. Chronic chronic obstructive pulmonary disease, on prednisone. 4. Chronic atrial fibrillation, not a candidate for anticoagulation secondary to falls and bleeding. 5. Osteoporosis secondary to smoking. DISPOSITION: Home. The patient was given vitamin D supplements, calcium and vitamin D, and smoking counseling was done. Discharged to [facility]. FAHAD OCHOA MD DR: ROHAN/itz JOB#: [id number] / [id number]
[2016-09-12] MEDS ORDERED: ERGOCALCIFEROL (VITAMIN D2) 50,000 UNIT CAPSULE. PO SCH (09:00)
== END 2016-09-08 16:43 | DRG 481 ==
LOC: ER 10:19 → 4 NORTH 10:43
PROVIDERS: ADMIT Internal Medicine; ATTEND Internal Medicine
PROC: 0QS706Z Reposition Left Upper Femur with Intramedullary Internal Fixation Device, Open Approach (ICD-10-PCS; principal; 2016-09-04 17:30)
DX: S72.142A Displaced intertrochanteric fracture of left femur, initial encounter for closed fracture (principal); D62 Acute posthemorrhagic anemia; E55.9 Vitamin D deficiency, unspecified; F17.210 Nicotine dependence, cigarettes, uncomplicated; I27.2 Other secondary pulmonary hypertension; I48.0 Paroxysmal atrial fibrillation; I70.0 Atherosclerosis of aorta; G56.01 Carpal tunnel syndrome, right upper limb; F03.90 Unspecified dementia, unspecified severity, without behavioral disturbance, psychotic disturbance, mood disturbance, and anxiety; E05.90 Thyrotoxicosis, unspecified without thyrotoxic crisis or storm; G62.9 Polyneuropathy, unspecified; K21.9 Gastro-esophageal reflux disease without esophagitis; K59.00 Constipation, unspecified; M06.9 Rheumatoid arthritis, unspecified; M81.0 Age-related osteoporosis without current pathological fracture; M41.9 Scoliosis, unspecified; M11.20 Other chondrocalcinosis, unspecified site; J44.9 Chronic obstructive pulmonary disease, unspecified; W18.30XA Fall on same level, unspecified, initial encounter; F32.9 Major depressive disorder, single episode, unspecified; K57.90 Diverticulosis of intestine, part unspecified, without perforation or abscess without bleeding; M19.90 Unspecified osteoarthritis, unspecified site; M54.9 Dorsalgia, unspecified; Z90.710 Acquired absence of both cervix and uterus; Y93.89 Activity, other specified; Y99.8 Other external cause status; Y92.009 Unspecified place in unspecified non-institutional (private) residence as the place of occurrence of the external cause; Z79.899 Other long term (current) drug therapy; Z79.1 Long term (current) use of non-steroidal anti-inflammatories (NSAID); Z98.49 Cataract extraction status, unspecified eye; Z82.49 Family history of ischemic heart disease and other diseases of the circulatory system; I12.9 Hypertensive chronic kidney disease with stage 1 through stage 4 chronic kidney disease, or unspecified chronic kidney disease; N18.1 Chronic kidney disease, stage 1
CPT/HCPCS: 36415; 51702; 70450; 71010; 73030; 73502; 73560; 76000; 80048; 80053; 81001; 82306; 84443; 85007; 85014; 85018; 85027; 85610; 87641; 93005; 96361; 96374; 96375; A4215; A4314; C1713; C1887; J0171; J0690; J1100; J1650; J1720; J2270; J2405; J2704; J2795; J3010; J7030; J7512; 97110; 97116; 97530; 97535; 99285-25